=== PATIENT | male | born 1995 | race Caucasian/White ===

== ENCOUNTER 2017-07-14 14:51 | Inpatient (IN) | payer OTHER ==
[~2017-07-14] VITALS: Ht 185.4 cm; Wt 68.3 kg
[~2017-07-14 14:51] MED LIST: LACTATED RINGER'S 1000 ML INJ 1,000 ML IV ONE; ROCURONIUM INJ 50 MG/5 ML SYRINGE IV PUSH ONE; SODIUM CHLORIDE 0.9% 20 ML VIAL IV ONE
[2017-07-14] MEDS ORDERED: IOHEXOL 350 MG/ML 10 ML VIAL (for RAD DIAG) IVCONTRAST ONE (14:52)
[2017-07-14] MEDS ORDERED: ETOMIDATE 20 MG/10 ML VIAL ONE (14:54)
[2017-07-14] MEDS ORDERED: SUCCINYLCHOLINE CHLORIDE 200 MG/10 ML VIAL ONE ×2 (14:54→15:04)
[2017-07-14] MEDS ORDERED: ceFAZolin 2 GM PREMIX 50 ML ONE (15:14)
[2017-07-14] MEDS ORDERED: DIPHTH/TETANUS/ACEL PERTUSSIS (BOOSTER) 0.5 ML VIAL/PFS IM ONE ×2 (15:14→15:55)
[2017-07-14] MEDS ORDERED: MORPHINE SULFATE 4 MG/ML INJ ONE (15:14)
[2017-07-14] MEDS ORDERED: PROPOFOL 1000 MG/100 ML INJ 100 ML ONE (15:17)
[2017-07-14 15:28] LABS: AUTOMATED NEUTROPHIL # 19.3 TH/MM3 (1.8-7.7); BASOPHIL # 0.1 TH/MM3 (0-0.2); BASOPHIL % 0.4 % (0.0-2.0); EOSINOPHIL # 0.3 TH/MM3 (0-0.4); EOSINOPHIL % 1.1 % (0.0-4.0); HEMATOCRIT 46.6 % (39.0-51.0); HEMOGLOBIN 15.4 GM/DL (13.0-17.0); LYMPH % 20.1 % (9.0-44.0); LYMPHOCYTE # 5.3 TH/MM3 (1.0-4.8); MEAN CELL VOLUME 90.5 FL (80.0-100.0); MEAN CORPUSCULAR HGB CONC 33.1 % (32.0-36.0); MEAN PLATELET VOLUME 10.1 FL (7.0-11.0); MONO % 5.5 % (0.0-8.0); MONOCYTE # 1.4 TH/MM3 (0-0.9); NEUT % 72.9 % (16.0-70.0); PLATELET COUNT 359 TH/MM3 (150-450); RED BLOOD COUNT 5.15 MIL/MM3 (4.50-5.90); RED CELL DISTRIBUTION WIDTH 13.3 % (11.6-17.2); WHITE BLOOD COUNT 26.4 TH/MM3 (4.0-11.0)
[2017-07-14 15:37] LABS: INTERNATIONAL NORMALIZED RATIO 1.1 RATIO; PROTHROMBIN TIME - PATIENT 11.5 SEC (9.8-11.6)
[2017-07-14] MEDS ORDERED: VECURONIUM BROMIDE 10 MG VIAL ONE (15:38)
[2017-07-14] MEDS ORDERED: ceFAZolin 2 GM PREMIX 50 ML IV STA (15:55)
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
[2017-07-14] MEDS ORDERED: MORPHINE SULFATE 4 MG/ML INJ IV PUSH ONE (16:00)
[2017-07-14] MEDS ORDERED: ONDANSETRON HCL 4 MG/2 ML VIAL IV PUSH ONE (16:00)
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
[2017-07-14 16:08] VITALS: O2SAT 99
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
[2017-07-14] MEDS: SODIUM CHLOR 0.9% 1000 ML INJ 1,000 ML IV SCH (16:20)
[2017-07-14 16:21] LABS: BANDS 1 % (0-6); BASOPHILS 1 % (0-2); LYMPHOCYTES 25 % (9-44); METAMYELOCYTES 1 % (0-1); MONOCYTES 2 % (0-8); MYELOCYTES 1 % (0-0); NEUTROPHIL # MANUAL DIFF 18.5 TH/MM3 (1.8-7.7); POLYS (SEG NEUTROPHILS) 67 % (16-70)
[2017-07-14] MEDS ORDERED: MAGNESIUM HYDROXIDE SUSP 30 ML CUP PO PRN (16:30)
[2017-07-14] MEDS ORDERED: MISCELLANEOUS NURSING INFORMATION XX SCH (16:30)
[2017-07-14] MEDS ORDERED: SODIUM CHLORIDE 0.9% FLUSH 10 ML FLUSH IV FLUSH PRN (16:30)
[2017-07-14] MEDS ORDERED: ONDANSETRON HCL 4 MG/2 ML VIAL IV PUSH PRN (16:30)
[2017-07-14] MEDS ORDERED: CHLORHEXIDINE GLUCONATE 2 % 1 PACK (2 CLOTHS) TOP PRN (16:30)
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
[2017-07-14] MEDS ORDERED: PROPOFOL 500 MG/50 ML INJ 50 ML ONE ×2 (17:27→19:00)
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
[2017-07-14] MEDS ORDERED: fentaNYL DRIP 250 ML IV PRN ×2 (17:45→20:00)
[2017-07-14] MEDS ORDERED: PROPOFOL 1000 MG/100 ML INJ 100 ML IV PRN ×2 (17:45→20:00)
[2017-07-14] MEDS ORDERED: RESP: ALBUTEROL 2.5 MG/IPRATROPIUM 0.5 MG NEB (PRN) NEB (18:00)
[2017-07-14] MEDS ORDERED: 3% SALINE INJ 500 ML IV ONE (18:00)
[2017-07-14 18:05] VITALS: O2SAT 100
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
[2017-07-14] MEDS ORDERED: levETIRAcetam INJ 100 ML IV ONE (18:44)
[2017-07-14] MEDS ORDERED: SODIUM PHOSPHATE INJ 30 MMOL in SODIUM CHLOR 0.9% 250 ML INJ 240 ML IV PRN (19:00)
[2017-07-14] MEDS ORDERED: POTASSIUM CHLORIDE 25 MEQ EFFERVESCENT TAB PO PRN (19:00)
[2017-07-14] MEDS ORDERED: POTASSIUM CHLOR 20 MEQ PREMIX 100 ML IV PRN ×2 (19:00)
[2017-07-14] MEDS ORDERED: POTASSIUM PHOSPHATE INJ 30 MMOL in SODIUM CHLOR 0.9% 250 ML INJ 250 ML IV PRN (19:00)
[2017-07-14] MEDS ORDERED: MAGNESIUM SULFATE INJ 2 GM in SODIUM CHLORIDE 0.9% INJ 96 ML IV PRN (19:00)
[2017-07-14] MEDS ORDERED: POTASSIUM PHOSPHATE MONOBASIC 500 MG TAB PO PRN (19:00)
[2017-07-14] MEDS ORDERED: POTASSIUM PHOSPHATE MONOBASIC 500 MG TAB PO/TUBE PRN (19:00)
[2017-07-14] MEDS ORDERED: POTASSIUM CHLOR 40 MEQ PREMIX 100 ML IV PRN ×2 (19:00)
[2017-07-14] MEDS ORDERED: MAGNESIUM SULFATE INJ 4 GM in SODIUM CHLORIDE 0.9% INJ 92 ML IV PRN (19:00)
[2017-07-14] MEDS ORDERED: MAGNESIUM OXIDE 400 MG TAB PO PRN (19:00)
[2017-07-14] MEDS ORDERED: DO NOT ADM ANY ANTICOAGULANT DRUGS PRN (19:15)
[2017-07-14 20:00] VITALS: BP 152/78; PULSE 82; RESP 22; TEMP 98.7; O2SAT 100
[2017-07-14] MEDS: DOCUSATE SODIUM 100 MG CAP PO SCH (20:15)
--- NOTE | 2017-07-14 20:28 | RADRPT ---
EXAM DATE/TIME: 07/14/2017 19:39 [facility] COMPARISON: CHEST SINGLE AP, July 14, 2017, 14:52. INDICATIONS : Post chest tube placement. MEDICAL HISTORY : None. SURGICAL HISTORY : None. ENCOUNTER: Initial ACUITY: 1 day PAIN SCORE: Non-responsive. LOCATION: Right chest FINDINGS: A right-sided chest tube has been placed. There is a tiny persistent right apical pneumothorax measur ing 18 mm. And the endotracheal tube has its tip 2 cm above the elian. The nasogastric tube has its tip coiled in the stomach. The heart is normal. The pulmonary vascular pattern is normal. The lungs a re clear. CONCLUSION: Right-sided chest tube appears to be in good position. Tiny residual right apical pneumothorax measur ing 18 mm is noted. Torin Osuna MD on July 14, 2017 at 20:24 Board Certified Radiologist. This report was verified electronically.
[2017-07-14] MEDS: CHLORHEXIDINE 0.12% (ORAL KIT) 15 ML CUP MT SCH (20:29)
[2017-07-14] MEDS: SODIUM CHLORIDE 23.4% INJ 188 MEQ in SODIUM CHLOR 0.9% 1000 ML INJ 1,000 ML IV SCH (20:29)
[2017-07-14] MEDS: PROPOFOL 1000 MG/100 ML INJ 100 ML IV PRN (20:31)
[2017-07-14] MEDS: fentaNYL DRIP 250 ML IV PRN (20:32)
[2017-07-14 21:18] VITALS: O2SAT 100
[2017-07-14 22:00] VITALS: PULSE 86
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
[2017-07-14 22:39] LABS: MAGNESIUM 1.8 MG/DL (1.5-2.5); PHOSPHORUS 1.7 MG/DL (2.5-4.9)
[2017-07-15] VITALS (16 sets, daily range): BP systolic 93–142; BP diastolic 53–69; PULSE 64–100; RESP 16–20; TEMP 97.9–99.1; O2SAT 34–100
[2017-07-15] MEDS: SODIUM CHLOR 0.9% 1000 ML INJ 1,000 ML IV SCH ×3 (00:11→15:00)
[2017-07-15] MEDS: PROPOFOL 1000 MG/100 ML INJ 100 ML IV PRN ×5 (00:11→20:01)
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
[2017-07-15] MEDS ORDERED: EPINEPHrine HCL (1:10,000) 1 MG/10 ML SYRINGE ONE (03:33)
[2017-07-15] MEDS ORDERED: LIDOCAINE HCL 2% 100 MG/5 ML SYRINGE ONE (03:33)
[2017-07-15] MEDS ORDERED: ATROPINE SULFATE 1 MG/10 ML SYRINGE ONE (03:33)
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
[2017-07-15 04:57] LABS: AUTOMATED NEUTROPHIL # 9.2 TH/MM3 (1.8-7.7); BASOPHIL % 0.2 % (0.0-2.0); EOSINOPHIL # 0.1 TH/MM3 (0-0.4); EOSINOPHIL % 0.9 % (0.0-4.0); HEMATOCRIT 37.9 % (39.0-51.0); HEMOGLOBIN 13.3 GM/DL (13.0-17.0); LYMPH % 8.3 % (9.0-44.0); LYMPHOCYTE # 0.9 TH/MM3 (1.0-4.8); MEAN CELL VOLUME 86.4 FL (80.0-100.0); MEAN CORPUSCULAR HEMOGLOBIN 30.3 PG (27.0-34.0); MEAN CORPUSCULAR HGB CONC 35.1 % (32.0-36.0); MEAN PLATELET VOLUME 9.2 FL (7.0-11.0); MONO % 9.7 % (0.0-8.0); MONOCYTE # 1.1 TH/MM3 (0-0.9); NEUT % 80.9 % (16.0-70.0); PLATELET COUNT 220 TH/MM3 (150-450); RED BLOOD COUNT 4.39 MIL/MM3 (4.50-5.90); RED CELL DISTRIBUTION WIDTH 13.2 % (11.6-17.2); WHITE BLOOD COUNT 11.4 TH/MM3 (4.0-11.0)
[2017-07-15] MEDS: CHLORHEXIDINE GLUCONATE 2 % 1 PACK (2 CLOTHS) TOP SCH (05:02)
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
[2017-07-15] MEDS: levETIRAcetam INJ 500 MG in SODIUM CHLORIDE 0.9% INJ 100 ML IV SCH ×3 (05:27→20:05)
[2017-07-15] MEDS: CHLORHEXIDINE 0.12% (ORAL KIT) 15 ML CUP MT SCH ×2 (08:00→20:05)
[2017-07-15] MEDS: DOCUSATE SODIUM 100 MG CAP PO SCH ×2 (09:00→20:02)
[2017-07-15] MEDS ORDERED: NOREPINEPHRINE-DEXTROSE DRIP 250 ML IV ONE (09:15)
[2017-07-15] MEDS ORDERED: PERC5TAB12 PO (09:50)
[2017-07-15] MEDS ORDERED: NOREPINEPHRINE 4 MG/D5W 250 ML IV PRN (10:30)
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
--- NOTE | 2017-07-15 12:54 | HHI.NSPN ---
Labs, Micro, & Vital Signs Results Date Time Temp Pulse Resp B/P (MAP) Pulse Ox O2 Delivery O2 Flow Rate FiO2 07/15/17 12:12 100 50 07/15/17 10:15 77 116/57 07/15/17 10:00 78 112/55 07/15/17 09:30 76 111/56 07/15/17 09:15 80 106/58 07/15/17 08:57 34 50 07/15/17 08:57 50 07/15/17 08:00 50 07/15/17 08:00 98.4 87 18 100/62 (75) 99 07/15/17 06:00 96 07/15/17 05:49 99 50 07/15/17 04:00 100 07/15/17 04:00 50 07/15/17 04:00 99 100 07/15/17 04:00 99.1 100 20 114/68 (83) 100 07/15/17 02:00 96 07/15/17 00:12 100 50 07/15/17 00:00 93 07/15/17 00:00 99.1 93 20 108/69 (82) 100 07/15/17 00:00 50 07/14/17 22:00 86 07/14/17 21:18 100 50 07/14/17 21:18 100 50 07/14/17 20:00 82 07/14/17 20:00 98.7 82 22 152/78 (102) 100 07/14/17 18:05 100 50 07/14/17 18:05 100 50 07/14/17 16:08 99 100 07/14/17 16:08 99 15.00 100 07/16/17 07:00 Intake Total 105 ml Balance 105 ml Constitutional Vital Signs Date Time Temp Pulse Resp B/P (MAP) Pulse Ox O2 Delivery O2 Flow Rate FiO2 07/15/17 12:12 100 50 07/15/17 10:15 77 116/57 07/15/17 10:00 78 112/55 07/15/17 09:30 76 111/56 07/15/17 09:15 80 106/58 07/15/17 08:57 34 50 07/15/17 08:57 50 07/15/17 08:00 50 07/15/17 08:00 98.4 87 18 100/62 (75) 99 07/15/17 06:00 96 07/15/17 05:49 99 50 07/15/17 04:00 100 07/15/17 04:00 50 07/15/17 04:00 99 100 07/15/17 04:00 99.1 100 20 114/68 (83) 100 07/15/17 02:00 96 07/15/17 00:12 100 50 07/15/17 00:00 93 07/15/17 00:00 99.1 93 20 108/69 (82) 100 07/15/17 00:00 50 07/14/17 22:00 86 07/14/17 21:18 100 50 07/14/17 21:18 100 50 07/14/17 20:00 82 07/14/17 20:00 98.7 82 22 152/78 (102) 100 07/14/17 18:05 100 50 07/14/17 18:05 100 50 07/14/17 16:08 99 100 07/14/17 16:08 99 15.00 100 07/16/17 07:00 Intake Total 105 ml Balance 105 ml Maximo Ramírez MD Jul 15, 2017 12:54
[2017-07-15 13:13] LABS: BICARBONATE 24.9 MEQ/L (21.0-32.0); CALCIUM 8.3 MG/DL (8.5-10.1); CREATININE 0.92 MG/DL (0.60-1.30)
[2017-07-15 13:26] LABS: MAGNESIUM 2.1 MG/DL (1.5-2.5); PHOSPHORUS 2.7 MG/DL (2.5-4.9)
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
--- NOTE | 2017-07-15 15:27 | OTSOAPIP ---
RECEIVED OCCUPATIONAL THERAPY ORDERS FROM MICHAEL AMARO. REVIEWED ELECTRONIC MEDICAL RECORD. ATTEMPTED TO SEE PATIENT ON THE INTENSIVE CARE UNIT, HOWEVER ULISES MARKS REQUESTS TO HOLD EVALUATION THIS DATE. WILL FOLLOW UP AND REATTEMPT NEXT DAY. INTERDISCIPLINARY COMMUNICATION: REVIEWED ELECTRONIC MEDICAL RECORD, SPOKE WITH ULISES MARKS Therapist: Mary Beth Patterson, OTR/L Signature on file
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
[2017-07-15] MEDS: fentaNYL DRIP 250 ML IV PRN (18:35)
[2017-07-15] MEDS: SODIUM CHLORIDE 23.4% INJ 188 MEQ in SODIUM CHLOR 0.9% 1000 ML INJ 1,000 ML IV SCH (19:08)
[2017-07-15] MEDS: FAMOTIDINE 20 MG TAB PO SCH (20:05)
[2017-07-15 22:26] LABS: MAGNESIUM 1.9 MG/DL (1.5-2.5); PHOSPHORUS 2.4 MG/DL (2.5-4.9)
[2017-07-15] MEDS ORDERED: NOREPINEPHRINE 4 MG/4 ML AMP ONE (23:07)
[2017-07-16] VITALS (17 sets, daily range): BP systolic 118–152; BP diastolic 55–74; PULSE 58–111; RESP 16–20; TEMP 98.3–101.1; O2SAT 94–100
[2017-07-16] MEDS: SODIUM CHLOR 0.9% 1000 ML INJ 1,000 ML IV SCH ×4 (03:15→23:57)
[2017-07-16] MEDS: CHLORHEXIDINE GLUCONATE 2 % 1 PACK (2 CLOTHS) TOP SCH (03:16)
[2017-07-16] MEDS: PROPOFOL 1000 MG/100 ML INJ 100 ML IV PRN ×2 (04:07→17:36)
[2017-07-16] MEDS: NOREPINEPHRINE INJ 4 MG in SODIUM CHLOR 0.9% 250 ML INJ 246 ML IV PRN ×2 (04:08→18:57)
[2017-07-16 05:17] LABS: AUTOMATED NEUTROPHIL # 9.2 TH/MM3 (1.8-7.7); BASOPHIL % 0.3 % (0.0-2.0); EOSINOPHIL # 0.2 TH/MM3 (0-0.4); EOSINOPHIL % 1.8 % (0.0-4.0); HEMATOCRIT 31.7 % (39.0-51.0); HEMOGLOBIN 10.9 GM/DL (13.0-17.0); LYMPH % 7.1 % (9.0-44.0); LYMPHOCYTE # 0.8 TH/MM3 (1.0-4.8); MEAN CELL VOLUME 87.6 FL (80.0-100.0); MEAN CORPUSCULAR HEMOGLOBIN 30.2 PG (27.0-34.0); MEAN CORPUSCULAR HGB CONC 34.5 % (32.0-36.0); MEAN PLATELET VOLUME 9.1 FL (7.0-11.0); MONO % 8.4 % (0.0-8.0); MONOCYTE # 0.9 TH/MM3 (0-0.9); NEUT % 82.4 % (16.0-70.0); PLATELET COUNT 173 TH/MM3 (150-450); RED BLOOD COUNT 3.62 MIL/MM3 (4.50-5.90); WHITE BLOOD COUNT 11.2 TH/MM3 (4.0-11.0)
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
[2017-07-16 05:44] LABS: AST (GOT) 80 U/L (15-39); BICARBONATE 24.1 MEQ/L (21.0-32.0); BLOOD UREA NITROGEN 9 MG/DL (7-18); CALCIUM 8.3 MG/DL (8.5-10.1); CHLORIDE 117 MEQ/L (98-107); CREATININE 0.76 MG/DL (0.60-1.30); GLOMERULAR FILTRATION RATE 131 ML/MIN (>89); GLUCOSE,RANDOM 114 MG/DL (74-106); SODIUM (NA) 149 MEQ/L (136-145)
[2017-07-16 05:48] LABS: ALKALINE PHOSPHATASE 48 U/L (45-117); ALT (GPT) 27 U/L (9-52); TOTAL BILIRUBIN ADULT 2.1 MG/DL (0.2-1.0); TOTAL PROTEIN 5.7 GM/DL (6.4-8.2)
[2017-07-16] MEDS: CHLORHEXIDINE 0.12% (ORAL KIT) 15 ML CUP MT SCH ×2 (07:16→20:37)
[2017-07-16] MEDS ORDERED: GENTAMICIN SULFATE 80 MG/2 ML VIAL ONE (07:47)
[2017-07-16] MEDS ORDERED: VANCOMYCIN HCL 1000 MG VIAL ONE (07:47)
[2017-07-16] MEDS ORDERED: BUPIVACAINE/EPINEPHRINE 0.5% PF 30 ML VIAL ONE (08:13)
[2017-07-16] MEDS: levETIRAcetam INJ 500 MG in SODIUM CHLORIDE 0.9% INJ 100 ML IV SCH ×2 (08:46→20:36)
[2017-07-16] MEDS: FAMOTIDINE 20 MG TAB PO SCH ×2 (08:47→20:36)
[2017-07-16] MEDS: MAGNESIUM HYDROXIDE SUSP 30 ML CUP PO SCH ×2 (08:47→20:37)
[2017-07-16] MEDS: DOCUSATE SODIUM 100 MG CAP PO SCH ×3 (08:47→20:37)
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
[2017-07-16] MEDS ORDERED: LIDOCAINE HCL 1% PF 5 ML SYRINGE OTHER ONE (12:00)
[2017-07-16] MEDS ORDERED: DEXAMETHASONE SOD PHOS 4 MG/ML VIAL IV ONE (12:00)
[2017-07-16] MEDS ORDERED: PHENYLEPH/NS 1000 MCG/10 ML SYR IV ONE (12:00)
[2017-07-16] MEDS ORDERED: ONDANSETRON HCL 4 MG/2 ML VIAL IV ONE (12:00)
[2017-07-16] MEDS ORDERED: SUCCINYLCHOLINE CHLORIDE 100 MG/5 ML SYRINGE IV PUSH ONE (12:00)
[2017-07-16] MEDS ORDERED: NS 500 ML (EXCEL BAG) INJ 1,000 ML IV ONE (12:00)
[2017-07-16] MEDS ORDERED: KETOROLAC TROMETHAMINE 30 MG/ML (IVP) VIAL IV PUSH ONE (12:00)
[2017-07-16] MEDS ORDERED: PROPOFOL 200 MG/20 ML AMP IV ONE (12:00)
[2017-07-16] MEDS ORDERED: ROCURONIUM INJ 50 MG/5 ML SYRINGE IV PUSH ONE (12:00)
[2017-07-16] MEDS ORDERED: ceFAZolin 2 GM PREMIX 50 ML ONE (13:54)
[2017-07-16] MEDS ORDERED: PROPOFOL 500 MG/50 ML INJ 50 ML ONE (14:12)
--- NOTE | 2017-07-16 14:30 | OTSOAPIP ---
PATIENT OFF FLOOR. WILL FOLLOW UP TOMORROW. INTERDISCIPLINARY COMMUNICATION: REVIEWED ELECTRONIC MEDICAL RECORD Therapist: Mary Beth Patterson OTR/L Signature on file
--- NOTE | 2017-07-16 15:35 | RADRPT ---
EXAM DATE/TIME: 07/16/2017 15:02 [facility] COMPARISON: No previous studies available for comparison. INDICATIONS : Right forearm fracture. ORIF. MEDICAL HISTORY : None. SURGICAL HISTORY : None. ENCOUNTER: Initial ACUITY: 1 day PAIN SCORE: Non-responsive. LOCATION: Right forearm. FINDINGS: 2 spot intraoperative fluoroscopic views of the forearm demonstrate plate and screw fixation across t he right mid radius. Excellent alignment. CONCLUSION: Postoperative changes. Negrito Lorenzo MD on July 16, 2017 at 15:32 Board Certified Radiologist. This report was verified electronically.
[2017-07-16] MEDS ORDERED: PROMETHAZINE INJ 25 MG/ML VIAL IM PRN (15:45)
[2017-07-16] MEDS ORDERED: ONDANSETRON HCL 4 MG/2 ML VIAL IV PUSH PRN (15:45)
[2017-07-16] MEDS ORDERED: SODIUM CHLORIDE 0.9% FLUSH 10 ML FLUSH IV FLUSH PRN (15:45)
[2017-07-16] MEDS ORDERED: oxyCODONE/ACETAMINOPHEN 5 MG/325 MG TAB PO PRN ×2 (15:45)
--- NOTE | 2017-07-16 15:45 | PD.OP ---
cc: Shlomo Sparks Jr., MD Operative Report Date of Surgery: Jul 16, 2017 Preoperative Diagnosis: Right radial shaft fracture Left knee traumatic arthrotomy Postoperative Diagnosis: Same Procedure: #1 open reduction internal fixation right radius #2 left knee arthrotomy irrigation and debridement and wound closure. Anesthesia: Gen. Surgeon: Shlomo Sparks Nailer Machine(s): MICHAEL Boone The surgical procedure was assisted by my Advanced Registered Nurse Practitioner. My MIX CRUSHER OPERATOR presence was necessary throughout this case for the manipulation and positioning of the surgical extremity. My MIX CRUSHER OPERATOR was assisting me throughout the duration of this procedure. The skill set of an Advance Registered Nurse Practitioner was medically necessary to complete this procedure. During the surgical case, the rn surgical was working at the back table and the Advance Registered Nurse Practitioner was directly assisting me. Resident Surgeon: None Operation and Findings: Patient was seen and evaluated preoperatively and found to have a radial shaft fracture as well as left knee traumatic arthrotomy. Informed consent was obtained after detailed discussion of risk and benefits including bleeding, infection, injury to arteries, nerves, and blood vessels, weakness and numbness of hand, and tendon rupture. Informed consent was obtained. Patient received IV antibiotics prior to incision. Timeout procedure was performed. Operative extremity were prepped with alcohol followed by Hibiclens and draped usual sterile fashion. A standard volar approach to the volar forearm was utilized. The fracture site was now visualized. Traction was applied. The articular surface was reduced. Fracture fragments were manipulated to achieve excellent reduction. Fluoroscopy confirmed appropriate alignment of fracture. Fracture was fixed with 2.7mm lag screw for compression then neutralized with a Synthes 7-hole plate. Screws were predrilled and measured for appropriate length. Final fluoroscopy revealed excellent of fracture with well-placed hardware. The wound was thoroughly irrigated with sterile saline. Subcutaneous tissue was closed with 3-0 Vicryl and skin was closed with 3-0 nylon. Sterile dressings were applied with Xeroform, 4 x 4, soft roll, and a well padded volar splint. Compartments were soft and compressible after procedure. Attention now turned to the left knee. There is a large laceration overlying the knee and the entire patella with exposed bone and soft tissue. There is a traumatic arthrotomy wound in the superior pole of the patella with Significant soft tissue contamination. The arthrotomy was extended to allow thorough irrigation and debridement with 6 L of normal saline. The wound was closed with #1 PDS in the capsule, 3-0 PDS in the subcutaneous tissue and 2-0 nylon. Patient was awakened and transferred to recovery room in stable condition IMPLANTS USED Synthes POSTP-OP PLAN OF ACTIVITY Antibiotics: Ancef 48hrs Antiocoagulation: Lovenox Weight bearing status: NWB RUE, WBAT LLE Dressing: Change daily, by RN starting postop day 2 Future procedure planned: none Dispo: when medically stable Shlomo Sparks Jr., MD Jul 16, 2017 15:45
[2017-07-16] MEDS: fentaNYL DRIP 250 ML IV PRN (17:36)
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
[2017-07-16 19:29] LABS: PHOSPHORUS 2.4 MG/DL (2.5-4.9)
[2017-07-16] MEDS ORDERED: SODIUM CHLOR 0.9% 1000 ML INJ 1,000 ML IV ONE (20:30)
[2017-07-16] MEDS: SODIUM CHLORIDE 23.4% INJ 188 MEQ in SODIUM CHLOR 0.9% 1000 ML INJ 1,000 ML IV SCH (20:32)
[2017-07-16] MEDS: CIPROFLOXACIN/HYDROCORTISONE OTIC 10 ML BTL RIGHT EAR SCH (20:36)
[2017-07-16] MEDS: SODIUM CHLORIDE 0.9% FLUSH 10 ML FLUSH IV FLUSH SCH (20:37)
[2017-07-17] VITALS (19 sets, daily range): BP systolic 114–134; BP diastolic 52–68; PULSE 65–106; RESP 18; TEMP 98.1–99.1; O2SAT 98–100
[2017-07-17 00:58] LABS: MAGNESIUM 2.1 MG/DL (1.5-2.5); PHOSPHORUS 2.4 MG/DL (2.5-4.9)
[2017-07-17] MEDS: PROPOFOL 1000 MG/100 ML INJ 100 ML IV PRN (03:00)
[2017-07-17] MEDS: CHLORHEXIDINE GLUCONATE 2 % 1 PACK (2 CLOTHS) TOP SCH (04:00)
[2017-07-17 05:29] LABS: AUTOMATED NEUTROPHIL # 8.1 TH/MM3 (1.8-7.7); BASOPHIL % 0.2 % (0.0-2.0); EOSINOPHIL % 0.2 % (0.0-4.0); HEMATOCRIT 28.7 % (39.0-51.0); LYMPH % 6.6 % (9.0-44.0); LYMPHOCYTE # 0.6 TH/MM3 (1.0-4.8); MEAN CELL VOLUME 87.3 FL (80.0-100.0); MEAN CORPUSCULAR HEMOGLOBIN 30.3 PG (27.0-34.0); MEAN CORPUSCULAR HGB CONC 34.7 % (32.0-36.0); MEAN PLATELET VOLUME 8.9 FL (7.0-11.0); MONO % 6.5 % (0.0-8.0); MONOCYTE # 0.6 TH/MM3 (0-0.9); NEUT % 86.5 % (16.0-70.0); PLATELET COUNT 163 TH/MM3 (150-450); RED BLOOD COUNT 3.28 MIL/MM3 (4.50-5.90); RED CELL DISTRIBUTION WIDTH 13.1 % (11.6-17.2); WHITE BLOOD COUNT 9.4 TH/MM3 (4.0-11.0)
[2017-07-17 05:41] LABS: ALBUMIN 2.6 GM/DL (3.4-5.0); AST (GOT) 155 U/L (15-39); BICARBONATE 24.8 MEQ/L (21.0-32.0); BLOOD UREA NITROGEN 9 MG/DL (7-18); CALCIUM 7.9 MG/DL (8.5-10.1); CHLORIDE 118 MEQ/L (98-107); CREATININE 0.68 MG/DL (0.60-1.30); GLOMERULAR FILTRATION RATE 149 ML/MIN (>89); GLUCOSE,RANDOM 140 MG/DL (74-106); SODIUM (NA) 149 MEQ/L (136-145)
[2017-07-17 05:44] LABS: ALKALINE PHOSPHATASE 42 U/L (45-117); ALT (GPT) 40 U/L (9-52); TOTAL BILIRUBIN ADULT 1.3 MG/DL (0.2-1.0); TOTAL PROTEIN 5.6 GM/DL (6.4-8.2)
--- NOTE | 2017-07-17 06:17 | RADRPT ---
EXAM DATE/TIME: 07/17/2017 05:08 [place] COMPARISON: CHEST SINGLE AP, July 16, 2017, 4:14. INDICATIONS : Short of breath. MEDICAL HISTORY : None. SURGICAL HISTORY : None. ENCOUNTER: Subsequent ACUITY: 3 days PAIN SCORE: 0/10 LOCATION: Left chest FINDINGS: Portable AP view of the chest demonstrates a normal-sized cardiac silhouette. Endotracheal tube and n asogastric tube remain present. Right chest tube is in place and no definite pneumothorax is identifi ed. There is mild atelectasis at the lung bases. CONCLUSION: Right chest tube remains present and no pneumothorax is identified. There is mild atelectasis at the lung bases. Raphael Mendez MD on July 17, 2017 at 6:14 Board Certified Radiologist. This report was verified electronically.
[2017-07-17] MEDS: CHLORHEXIDINE 0.12% (ORAL KIT) 15 ML CUP MT SCH ×2 (08:00→19:37)
[2017-07-17] MEDS: SODIUM CHLOR 0.9% 1000 ML INJ 1,000 ML IV SCH ×2 (08:20→16:20)
[2017-07-17] MEDS: SODIUM CHLORIDE 0.9% FLUSH 10 ML FLUSH IV FLUSH SCH ×2 (08:30→19:37)
[2017-07-17] MEDS: levETIRAcetam INJ 500 MG in SODIUM CHLORIDE 0.9% INJ 100 ML IV SCH ×2 (08:30→19:37)
[2017-07-17] MEDS: MAGNESIUM HYDROXIDE SUSP 30 ML CUP PO SCH ×2 (08:31→19:36)
[2017-07-17] MEDS: FAMOTIDINE 20 MG TAB PO SCH ×2 (08:31→19:37)
[2017-07-17] MEDS: DOCUSATE SODIUM 100 MG CAP PO SCH ×4 (08:31→19:37)
[2017-07-17] MEDS: CIPROFLOXACIN/HYDROCORTISONE OTIC 10 ML BTL RIGHT EAR SCH ×2 (08:31→19:38)
[2017-07-17] MEDS: fentaNYL DRIP 250 ML IV PRN (08:32)
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
[2017-07-17 12:12] LABS: MAGNESIUM 2.4 MG/DL (1.5-2.5); PHOSPHORUS 1.6 MG/DL (2.5-4.9)
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
[2017-07-17] MEDS: SODIUM CHLORIDE 23.4% INJ 188 MEQ in SODIUM CHLOR 0.9% 1000 ML INJ 1,000 ML IV SCH (18:28)
--- NOTE | 2017-07-17 22:11 | PD.ORT.PN ---
Subjective Subjective Remarks Intubated Objective Vitals Vital Signs Date Time Temp Pulse Resp B/P (MAP) Pulse Ox O2 Delivery O2 Flow Rate FiO2 07/17/17 20:00 45 07/17/17 20:00 83 07/17/17 20:00 99.1 83 18 130/65 (86) 100 07/17/17 18:00 77 07/17/17 16:00 84 07/17/17 16:00 45 07/17/17 16:00 98.3 84 18 122/60 (80) 100 07/17/17 15:57 99 45 07/17/17 14:00 75 07/17/17 12:00 81 07/17/17 12:00 45 07/17/17 12:00 98.1 81 18 130/68 (88) 100 07/17/17 11:44 100 45 07/17/17 10:30 78 152/74 07/17/17 10:00 78 07/17/17 08:46 99 45 07/17/17 08:00 45 07/17/17 08:00 98.6 66 18 124/52 (76) 100 07/17/17 08:00 65 07/17/17 06:00 67 07/17/17 04:38 100 45 07/17/17 04:00 60 07/17/17 04:00 65 07/17/17 04:00 98.4 65 18 114/56 (75) 100 07/17/17 02:00 69 07/17/17 00:23 100 50 07/17/17 00:22 100 50 07/17/17 00:00 60 07/17/17 00:00 99.1 73 18 134/64 (87) 100 07/17/17 00:00 106 I/O 07/16/17 07/16/17 07/16/17 07/17/17 07/17/17 07/17/17 07:00 15:00 23:00 07:00 15:00 23:00 Intake Total 1455 ml 105 ml 3321 ml 1278 ml 455 ml 1790 ml Output Total 889 ml 1760 ml 796 ml 930 ml Balance 566 ml 105 ml 1561 ml 482 ml 455 ml 860 ml Intake IV Total 1455 ml 105 ml 3321 ml 1200 ml 455 ml 1100 ml Tube Feeding 78 ml 590 ml Other 100 ml Output Urine Total 750 ml 650 ml 750 ml 850 ml Gastric Drainage Total 125 ml 0 ml Chest Tube Drainage Total 14 ml 10 ml 46 ml 80 ml Estimated Blood Loss 100 ml Other 1000 ml # Bowel Movements 0 0 0 0 Result Diagram: 07/17/17 0520 07/17/17 1700 Imaging Last 24 hours Impressions Chest X-Ray 07/17/17 0600 Signed Impressions: Service Date/Time: Monday, July 17, 2017 05:08 - CONCLUSION: Right chest tube remains present and no pneumothorax is identified. There is mild atelectasis at the lung bases. Raphael Mendez MD Objective Remarks intubated right upper extremity -splint in place good cap refill left knee- CKS. dressing CDI Assessment & Plan Assessment and Plan POD1- ORIF right radius left knee I&D intubated Antibiotics: Ancef 48hrs Antiocoagulation: Lovenox Weight bearing status: NWB RUE, WBAT LLE Dressing: Change daily, by RN starting postop day 2 Dispo: when medically stable Shlomo Sparks Jr., MD Jul 17, 2017 22:11
[2017-07-18] VITALS (17 sets, daily range): BP systolic 113–144; BP diastolic 51–68; PULSE 57–84; RESP 18–20; TEMP 98.7–100.7; O2SAT 95–100
[2017-07-18 01:02] LABS: MAGNESIUM 2.4 MG/DL (1.5-2.5); PHOSPHORUS 2.2 MG/DL (2.5-4.9)
[2017-07-18] MEDS: PROPOFOL 1000 MG/100 ML INJ 100 ML IV PRN ×2 (04:00→17:38)
[2017-07-18] MEDS: CHLORHEXIDINE GLUCONATE 2 % 1 PACK (2 CLOTHS) TOP SCH (04:00)
[2017-07-18] MEDS: SODIUM CHLOR 0.9% 1000 ML INJ 1,000 ML IV SCH ×2 (04:57→21:37)
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
[2017-07-18 06:09] LABS: AUTOMATED NEUTROPHIL # 6.9 TH/MM3 (1.8-7.7); BASOPHIL % 0.5 % (0.0-2.0); EOSINOPHIL # 0.1 TH/MM3 (0-0.4); EOSINOPHIL % 1.6 % (0.0-4.0); HEMATOCRIT 25.8 % (39.0-51.0); LYMPH % 8.3 % (9.0-44.0); LYMPHOCYTE # 0.7 TH/MM3 (1.0-4.8); MEAN CELL VOLUME 87.2 FL (80.0-100.0); MEAN CORPUSCULAR HEMOGLOBIN 30.2 PG (27.0-34.0); MEAN CORPUSCULAR HGB CONC 34.7 % (32.0-36.0); MEAN PLATELET VOLUME 9.6 FL (7.0-11.0); MONO % 7.1 % (0.0-8.0); MONOCYTE # 0.6 TH/MM3 (0-0.9); NEUT % 82.5 % (16.0-70.0); PLATELET COUNT 186 TH/MM3 (150-450); RED BLOOD COUNT 2.96 MIL/MM3 (4.50-5.90); RED CELL DISTRIBUTION WIDTH 12.9 % (11.6-17.2); WHITE BLOOD COUNT 8.4 TH/MM3 (4.0-11.0)
[2017-07-18 06:37] LABS: ALBUMIN 2.4 GM/DL (3.4-5.0); ALKALINE PHOSPHATASE 48 U/L (45-117); ALT (GPT) 69 U/L (9-52); AST (GOT) 364 U/L (15-39); BICARBONATE 26.6 MEQ/L (21.0-32.0); BLOOD UREA NITROGEN 11 MG/DL (7-18); CALCIUM 7.9 MG/DL (8.5-10.1); CHLORIDE 117 MEQ/L (98-107); GLOMERULAR FILTRATION RATE 172 ML/MIN (>89); GLUCOSE,RANDOM 120 MG/DL (74-106); SODIUM (NA) 150 MEQ/L (136-145); TOTAL BILIRUBIN ADULT 0.9 MG/DL (0.2-1.0); TOTAL PROTEIN 5.5 GM/DL (6.4-8.2)
--- NOTE | 2017-07-18 06:37 | RADRPT ---
EXAM DATE/TIME: 07/18/2017 05:15 [facility] COMPARISON: CT FACIAL BONES W/O CONTRAST, July 14, 2017, 15:41. CT BRAIN W/O CONTRAST, July 16, 2017, 9:59. INDICATIONS : Follow up hemorrhage. RADIATION DOSE: 56.34 CTDIvol (mGy) MEDICAL HISTORY : None SURGICAL HISTORY : None. ENCOUNTER: Subsequent ACUITY: 2 days PAIN SCALE: Non-responsive LOCATION: cranial TECHNIQUE: Multiple contiguous axial images were obtained of the head. Using automated exposure control and adj ustment of the mA and/or kV according to patient size, radiation dose was kept as low as reasonably a chievable to obtain optimal diagnostic quality images. DICOM format image data is available electro nically for review and comparison. FINDINGS: There is a hemorrhagic contusion in the right basal ganglia and right temporal lobe. The acute blood products are stable measuring approximately 2.8 x 1.8 cm and there is surrounding vasogenic edema. At the high convexities bilaterally there are punctate areas of acute blood products and vasogenic jodi a similar to the prior study. The largest area measures 14 mm. There are questionable additional smal ler areas in the posterior parietal regions bilaterally. There is approximately 3 mm of right to left midline shift, stable from the prior study. Ventricles are normal in size. There is no downward ashish iation. Posterior fossa demonstrates no acute finding. No extra-axial fluid collections are seen. The re is a right frontal ICP monitor in place. There may be acute blood products along the tentorium cer ebelli. The right mandibular condyle fracture is again identified. CONCLUSION: 1. The multiple hemorrhagic contusions in the bilateral high convexities and in the right temporal lo be are stable. 2. There is stable 3 mm of right to left midline shift. 3. Right mandibular condyle fracture is again visualized. Raphael Mendez MD on July 18, 2017 at 6:29 Board Certified Radiologist. This report was verified electronically.
[2017-07-18] MEDS: fentaNYL DRIP 250 ML IV PRN (06:53)
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
[2017-07-18] MEDS: DOCUSATE SODIUM 100 MG CAP PO SCH ×3 (09:00→20:37)
[2017-07-18] MEDS: SODIUM CHLORIDE 0.9% FLUSH 10 ML FLUSH IV FLUSH SCH ×2 (09:00→20:37)
[2017-07-18] MEDS: levETIRAcetam INJ 500 MG in SODIUM CHLORIDE 0.9% INJ 100 ML IV SCH ×2 (09:10→20:36)
[2017-07-18] MEDS: FAMOTIDINE 20 MG TAB PO SCH ×2 (09:16→20:37)
[2017-07-18] MEDS: MAGNESIUM HYDROXIDE SUSP 30 ML CUP PO SCH ×2 (09:16→20:37)
[2017-07-18] MEDS: CIPROFLOXACIN/HYDROCORTISONE OTIC 10 ML BTL RIGHT EAR SCH ×2 (09:17→20:37)
[2017-07-18] MEDS: CHLORHEXIDINE 0.12% (ORAL KIT) 15 ML CUP MT SCH ×2 (09:17→20:36)
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
[2017-07-18] MEDS: MORPHINE SULFATE 8 MG/ML INJ IV PUSH PRN (15:19)
--- NOTE | 2017-07-18 16:51 | PD.ORT.PN ---
Subjective Subjective Remarks Intubated Objective Vitals Vital Signs Date Time Temp Pulse Resp B/P (MAP) Pulse Ox O2 Delivery O2 Flow Rate FiO2 07/18/17 16:00 35 07/18/17 16:00 98.8 68 18 116/56 (76) 96 07/18/17 16:00 68 07/18/17 15:41 100 45 07/18/17 14:00 58 07/18/17 12:00 45 07/18/17 12:00 98.8 70 18 122/68 (86) 100 07/18/17 12:00 70 07/18/17 11:46 35 07/18/17 10:00 64 07/18/17 08:27 99 35 07/18/17 08:00 59 07/18/17 08:00 45 07/18/17 08:00 98.7 59 18 120/62 (81) 98 07/18/17 06:00 61 07/18/17 05:05 100 100 07/18/17 04:00 75 07/18/17 04:00 99.1 75 20 113/51 (71) 100 07/18/17 04:00 45 07/18/17 02:00 84 07/18/17 01:44 99 45 07/18/17 00:00 80 07/18/17 00:00 45 07/18/17 00:00 99.2 80 18 128/66 (86) 100 07/17/17 22:00 74 07/17/17 20:54 98 45 07/17/17 20:54 98 45 07/17/17 20:00 45 07/17/17 20:00 83 07/17/17 20:00 99.1 83 18 130/65 (86) 100 07/17/17 18:00 77 I/O 07/17/17 07/17/17 07/17/17 07/18/17 07/18/17 07/18/17 07:00 15:00 23:00 07:00 15:00 23:00 Intake Total 1278 ml 455 ml 1890 ml 2360 ml Output Total 796 ml 930 ml 840 ml Balance 482 ml 455 ml 960 ml 1520 ml Intake IV Total 1200 ml 455 ml 1200 ml 1800 ml Tube Feeding 78 ml 590 ml 460 ml Other 100 ml 100 ml Output Urine Total 750 ml 850 ml 800 ml Chest Tube Drainage Total 46 ml 80 ml 40 ml # Bowel Movements 0 0 Result Diagram: 07/18/17 0545 07/18/17 0545 Imaging Last 24 hours Impressions Chest X-Ray 07/17/17 0600 Signed Impressions: Service Date/Time: Monday, July 17, 2017 05:08 - CONCLUSION: Right chest tube remains present and no pneumothorax is identified. There is mild atelectasis at the lung bases. Raphael Mendez MD Objective Remarks intubated right upper extremity -splint in place good cap refill left knee- CKS. dressing CDI Assessment & Plan Assessment and Plan POD2- ORIF right radius left knee I&D intubated Antibiotics: Ancef 48hrs Antiocoagulation: Lovenox Weight bearing status: NWB RUE, WBAT LLE Dressing: Change daily, by RN starting postop day 2 on left knee ok to dc CKS in 1 week Dispo: when medically stable Shlomo Sparks Jr., MD Jul 18, 2017 16:51
--- NOTE | 2017-07-18 19:30 | HHI.PR ---
Immediate Post Op Note Procedure Date: Jul 18, 2017 Pre Op Diagnosis: nasal lacerations x 2 1.5 cm degloving injury involving the nasal septum left facial laceration 2.5cm nasal bone fracture Post Op Diagnosis: lisa Surgeon: Ok Lazcano Dry Pan Operator(s): michelle mejia Procedure: closure of the nasal degloving injury with stabilization of the nasal septum closed reduction of the nasal bone fractures closure of the left facial laceration closure of the nasal lacerations Complications: none Specimen(s) removed: none Estimated blood loss: minimal Anesthesia: General, Local (2%lidocaine with 1:200,000 epi 5cc) Drains: None Patient to: ISC Patient Condition: Fair Date/Time of Procedure: SEE SURGICAL CARE RECORD Ok Lazcano DMD Jul 18, 2017 19:30
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
[2017-07-18] MEDS: LACTULOSE SYRUP 20 GM/30 ML CUP PO SCH (20:40)
[2017-07-19] VITALS (22 sets, daily range): BP systolic 104–149; BP diastolic 56–75; PULSE 54–106; RESP 12–18; TEMP 98.9–101; O2SAT 92–100
[2017-07-19] MEDS: CHLORHEXIDINE GLUCONATE 2 % 1 PACK (2 CLOTHS) TOP SCH (01:10)
[2017-07-19] MEDS: fentaNYL DRIP 250 ML IV PRN (01:15)
[2017-07-19 04:27] LABS: AUTOMATED NEUTROPHIL # 7.7 TH/MM3 (1.8-7.7); BASOPHIL % 0.4 % (0.0-2.0); EOSINOPHIL # 0.1 TH/MM3 (0-0.4); EOSINOPHIL % 0.6 % (0.0-4.0); HEMATOCRIT 26.9 % (39.0-51.0); HEMOGLOBIN 9.4 GM/DL (13.0-17.0); LYMPH % 8.8 % (9.0-44.0); LYMPHOCYTE # 0.8 TH/MM3 (1.0-4.8); MEAN CELL VOLUME 86.5 FL (80.0-100.0); MEAN CORPUSCULAR HEMOGLOBIN 30.1 PG (27.0-34.0); MEAN CORPUSCULAR HGB CONC 34.8 % (32.0-36.0); MEAN PLATELET VOLUME 9.2 FL (7.0-11.0); MONO % 5.8 % (0.0-8.0); MONOCYTE # 0.5 TH/MM3 (0-0.9); NEUT % 84.4 % (16.0-70.0); PLATELET COUNT 212 TH/MM3 (150-450); RED CELL DISTRIBUTION WIDTH 13.4 % (11.6-17.2); WHITE BLOOD COUNT 9.1 TH/MM3 (4.0-11.0)
[2017-07-19 04:55] LABS: BICARBONATE 25.2 MEQ/L (21.0-32.0); CALCIUM 8.1 MG/DL (8.5-10.1); CREATININE 0.57 MG/DL (0.60-1.30); MAGNESIUM 2.2 MG/DL (1.5-2.5)
[2017-07-19 04:56] LABS: PHOSPHORUS 2.7 MG/DL (2.5-4.9)
--- NOTE | 2017-07-19 05:37 | RADRPT ---
EXAM DATE/TIME: 07/19/2017 05:04 [facility] COMPARISON: CHEST SINGLE AP, July 18, 2017, 4:15. INDICATIONS : Shortness of breath. MEDICAL HISTORY : None. SURGICAL HISTORY : None. ENCOUNTER: Subsequent ACUITY: 4 - 6 days PAIN SCORE: Non-responsive. LOCATION: Bilateral chest FINDINGS: Portable AP view of the chest demonstrates a normal-sized cardiac silhouette. ETT and nasogastric tub e remain present. Right chest tube is in place and no pneumothorax is seen. There is mild airspace op acity at the lung bases. CONCLUSION: 1. Stable chest x-ray. Right chest tube is present and no pneumothorax is seen. 2. Mild bibasilar air space opacities representing either atelectasis or airspace consolidation. Raphael Mendez MD on July 19, 2017 at 5:34 Board Certified Radiologist. This report was verified electronically.
[2017-07-19] MEDS: CHLORHEXIDINE 0.12% (ORAL KIT) 15 ML CUP MT SCH ×2 (08:00→20:26)
[2017-07-19] MEDS: FAMOTIDINE 20 MG TAB PO SCH ×2 (08:26→20:26)
[2017-07-19] MEDS: PROPOFOL 1000 MG/100 ML INJ 100 ML IV PRN (08:26)
[2017-07-19] MEDS: MORPHINE SULFATE 8 MG/ML INJ IV PUSH PRN (08:35)
[2017-07-19] MEDS: levETIRAcetam INJ 500 MG in SODIUM CHLORIDE 0.9% INJ 100 ML IV SCH ×2 (08:35→20:27)
[2017-07-19] MEDS: CIPROFLOXACIN/HYDROCORTISONE OTIC 10 ML BTL RIGHT EAR SCH ×2 (09:00→20:27)
[2017-07-19] MEDS: DOCUSATE SODIUM 100 MG CAP PO SCH ×2 (09:00→20:22)
[2017-07-19] MEDS: LACTULOSE SYRUP 20 GM/30 ML CUP PO SCH (09:00)
[2017-07-19] MEDS: MAGNESIUM HYDROXIDE SUSP 30 ML CUP PO SCH ×2 (09:00→20:22)
[2017-07-19] MEDS: SODIUM CHLORIDE 0.9% FLUSH 10 ML FLUSH IV FLUSH SCH ×2 (09:18→20:27)
[2017-07-19] MEDS: SODIUM CHLOR 0.9% 1000 ML INJ 1,000 ML IV SCH (09:19)
[2017-07-19] MEDS ORDERED: QUEtiapine FUMARATE 25 MG TAB PO SCH (10:15)
[2017-07-19] MEDS ORDERED: DEXMEDETOMIDINE INJ 200 MCG in SODIUM CHLORIDE 0.9% INJ 50 ML IV PRN (10:15)
[2017-07-19] MEDS: VALPROIC ACID SYRUP 250 MG/5 ML UDC PO SCH ×2 (11:40→20:26)
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
[2017-07-19] MEDS ORDERED: hydrALAZINE HCL 20 MG/ML VIAL ONE (13:59)
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
[2017-07-19] MEDS ORDERED: QUEtiapine FUMARATE 25 MG TAB PO ONE (14:30)
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
[2017-07-19] MEDS ORDERED: PROPRANOLOL HCL 40 MG TAB PO SCH (15:00)
[2017-07-19] MEDS: PROPRANOLOL HCL 20 MG TAB PO SCH ×3 (15:16→23:42)
[2017-07-19] MEDS: oxyCODONE HCL ORAL CONC 5 MG/0.25 ML SYRINGE PO SCH ×3 (15:17→23:42)
[2017-07-19] MEDS: DEXMEDETOMIDINE INJ 1,000 MCG in SODIUM CHLOR 0.9% 250 ML INJ 250 ML IV PRN (15:45)
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
[2017-07-19] MEDS: QUEtiapine FUMARATE 25 MG TAB PO SCH (17:13)
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
[2017-07-20] VITALS (19 sets, daily range): BP systolic 108–128; BP diastolic 44–58; PULSE 51–92; RESP 9–20; TEMP 98.6–101.3; O2SAT 93–100
[2017-07-20] MEDS: oxyCODONE HCL ORAL CONC 5 MG/0.25 ML SYRINGE PO SCH ×6 (02:10→23:07)
[2017-07-20] MEDS: QUEtiapine FUMARATE 25 MG TAB PO SCH ×3 (02:11→18:28)
[2017-07-20] MEDS: ACETAMINOPHEN 650 MG/20.3 ML UDC PO PRN (02:11)
[2017-07-20] MEDS: CHLORHEXIDINE GLUCONATE 2 % 1 PACK (2 CLOTHS) TOP SCH (03:25)
[2017-07-20] MEDS ORDERED: TERBUTALINE INJ 1 MG/ML AMP SQ PRN (04:45)
[2017-07-20] MEDS ORDERED: DOPamine 800 MG/500 ML INJ 500 ML IV PRN (04:45)
[2017-07-20] MEDS ORDERED: DOPamine 800 MG/500 ML INJ 500 ML ONE (04:48)
[2017-07-20] MEDS ORDERED: D5W IV PRN (05:00)
[2017-07-20] MEDS ORDERED: DOPAMINE IV PRN (05:00)
[2017-07-20 05:14] LABS: AUTOMATED NEUTROPHIL # 6.1 TH/MM3 (1.8-7.7); BASOPHIL % 0.4 % (0.0-2.0); EOSINOPHIL # 0.1 TH/MM3 (0-0.4); EOSINOPHIL % 1.7 % (0.0-4.0); HEMATOCRIT 24.1 % (39.0-51.0); HEMOGLOBIN 8.5 GM/DL (13.0-17.0); LYMPH % 15.4 % (9.0-44.0); LYMPHOCYTE # 1.3 TH/MM3 (1.0-4.8); MEAN CELL VOLUME 86.2 FL (80.0-100.0); MEAN CORPUSCULAR HEMOGLOBIN 30.5 PG (27.0-34.0); MEAN CORPUSCULAR HGB CONC 35.3 % (32.0-36.0); MEAN PLATELET VOLUME 9.3 FL (7.0-11.0); MONO % 9.9 % (0.0-8.0); MONOCYTE # 0.8 TH/MM3 (0-0.9); NEUT % 72.6 % (16.0-70.0); PLATELET COUNT 232 TH/MM3 (150-450); RED CELL DISTRIBUTION WIDTH 12.8 % (11.6-17.2); WHITE BLOOD COUNT 8.4 TH/MM3 (4.0-11.0)
[2017-07-20 05:44] LABS: BICARBONATE 25.1 MEQ/L (21.0-32.0); CREATININE 0.71 MG/DL (0.60-1.30)
[2017-07-20] MEDS: PROPRANOLOL HCL 20 MG TAB PO SCH (05:45)
[2017-07-20] MEDS: PIPERACIL-TAZO 4.5 GM PREMIX 100 ML IV SCH ×4 (05:53→23:07)
[2017-07-20] MEDS: PROPOFOL 1000 MG/100 ML INJ 100 ML IV PRN ×4 (05:54→22:22)
[2017-07-20] MEDS ORDERED: SODIUM CHLOR 0.9% 1000 ML INJ 1,000 ML IV ONE (06:30)
--- NOTE | 2017-07-20 06:34 | RADRPT ---
EXAM DATE/TIME: 07/20/2017 06:00 [place] COMPARISON: CHEST SINGLE AP, July 19, 2017, 5:04. INDICATIONS : Follow up trauma. Short of breath. MEDICAL HISTORY : None. SURGICAL HISTORY : None. ENCOUNTER: Subsequent ACUITY: 4 - 6 days PAIN SCORE: Non-responsive. LOCATION: Bilateral chest FINDINGS: Portable AP view of the chest demonstrates a normal-sized cardiac silhouette. Nasogastric tube and ET T remain present. Right chest tube is in place and no pneumothorax is seen. There is mild opacity at the lung bases, decreased from the prior study. No pleural effusion or pneumothorax is seen. CONCLUSION: 1. Subtle bibasilar opacity slightly decreased from the prior study and most likely representing atel ectasis. 2. Right chest remains present and no pneumothorax is seen. Raphael Mendez MD on July 20, 2017 at 6:32 Board Certified Radiologist. This report was verified electronically.
[2017-07-20] MEDS: SODIUM CHLOR 0.9% 1000 ML INJ 1,000 ML IV SCH (06:57)
[2017-07-20] MEDS: CHLORHEXIDINE 0.12% (ORAL KIT) 15 ML CUP MT SCH ×2 (08:00→23:03)
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
[2017-07-20] MEDS: DOCUSATE SODIUM 100 MG CAP PO SCH ×2 (08:53→21:00)
[2017-07-20] MEDS: FAMOTIDINE 20 MG TAB PO SCH ×2 (08:53→23:04)
[2017-07-20] MEDS: LACTULOSE SYRUP 20 GM/30 ML CUP PO SCH (08:53)
[2017-07-20] MEDS: MAGNESIUM HYDROXIDE SUSP 30 ML CUP PO SCH ×2 (08:53→21:00)
[2017-07-20] MEDS: levETIRAcetam INJ 500 MG in SODIUM CHLORIDE 0.9% INJ 100 ML IV SCH ×2 (08:53→23:04)
[2017-07-20] MEDS: SODIUM CHLORIDE 0.9% FLUSH 10 ML FLUSH IV FLUSH SCH ×2 (08:53→23:04)
[2017-07-20] MEDS: CIPROFLOXACIN/HYDROCORTISONE OTIC 10 ML BTL RIGHT EAR SCH ×2 (08:53→23:07)
[2017-07-20] MEDS: VALPROIC ACID SYRUP 250 MG/5 ML UDC PO SCH ×2 (08:53→23:04)
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
[2017-07-20] MEDS: guanFACINE HCL 1 MG TAB PO SCH ×2 (10:00→18:00)
--- NOTE | 2017-07-20 12:49 | HHI.NSPN ---
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 2017 12:49 Maximo Ramírez MD Jul 20, 2017 21:09
--- NOTE | 2017-07-20 14:32 | RADRPT ---
EXAM DATE/TIME: 07/20/2017 13:33 [facility] COMPARISON: CT BRAIN W/O CONTRAST, July 18, 2017, 5:15. CT BRAIN W/O CONTRAST, July 15, 2017, 4:09. INDICATIONS : Stroke. Trauma. MEDICAL HISTORY : None. SURGICAL HISTORY : ORIF right arm. ENCOUNTER: Subsequent ACUITY: 4-6 days PAIN SCORE: Nonresponsive. LOCATION: head. TECHNIQUE: Multiplanar, multisequence MRI of the brain was performed without contrast. FINDINGS: The examination is compared with the recent CT scans of the brain. Ventricles remain normal in size. There continues to be an intraparenchymal hemorrhage in the right temporal lobe. There is an intrapar enchymal hemorrhage along the right cerebral vertex. However, small punctate hemorrhages are also see n high along the left cerebral vertex and frontal lobes bilaterally. The SWI images demonstrate exten sive microhemorrhages throughout the posterior fossa predominantly involving both cerebellar hemisphe res. There is extensive microhemorrhages throughout both cerebral hemispheres. This pattern is charac teristic of shear injury to the brain. The diffusion weighted images demonstrate a few punctate areas of increased signal which appear to correspond to the areas of punctate hemorrhage. There is mild mi dline shift to the left by 5 mm. No definite or significant subdural hematomas are demonstrated. Ther e is some subarachnoid hemorrhage overlying the right temporal lobe. Prominent chronic right mastoidi tis. The pituitary gland is grossly unremarkable. CONCLUSION: 1. No significant changes in the intraparenchymal hemorrhage noted in the right temporal lobe and hig h right cerebral vertex when compared to the recent prior CT scans of the brain. 2. However, there is extensive microhemorrhages throughout the cerebellar hemispheres and cerebral he mispheres bilaterally characteristic of shear injury to the brain. 3. There is some restricted diffusion associated with several tiny punctate microhemorrhages seen in the cerebral hemispheres. 4. Mild mass effect and midline shift to left by 5 mm. Bernardo Riddle MD on July 20, 2017 at 14:22 Board Certified Radiologist. This report was verified electronically.
--- NOTE | 2017-07-20 14:35 | RADRPT ---
EXAM DATE/TIME: 07/20/2017 13:33 [facility] COMPARISON: CT CERVICAL SPINE W/O CONTRAST, July 16, 2017, 9:59. INDICATIONS : Trauma. Epidural bleed. MEDICAL HISTORY : None. SURGICAL HISTORY : ORIF right arm. ENCOUNTER: Subsequent ACUITY: 4-6 days PAIN SCORE: Nonresponsive. LOCATION: neck. TECHNIQUE: Multiplanar, multisequence MRI examination of the cervical spine was performed. FINDINGS: VERTEBRAE: Normal vertebral body height. Homogeneous marrow signal. 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 No abnormal bone marrow edema seen in the vertebral bodies. ALIGNMENT: No evidence of subluxation. CORD: Normal configuration and signal. POST FOSSA: The cerebellar tonsils are normal in position. C2-C3: The thecal sac has a normal configuration. There is no evidence of disc herniation or spinal canal s tenosis. The neural foramina are patent bilaterally. C3-C4: The thecal sac has a normal configuration. There is no evidence of disc herniation or spinal canal s tenosis. The neural foramina are patent bilaterally. C4-C5: The thecal sac has a normal configuration. There is no evidence of disc herniation or spinal canal s tenosis. The neural foramina are patent bilaterally. C5-C6: The thecal sac has a normal configuration. There is no evidence of disc herniation or spinal canal s tenosis. The neural foramina are patent bilaterally. C6-C7: The thecal sac has a normal configuration. There is no evidence of disc herniation or spinal canal s tenosis. The neural foramina are patent bilaterally. C7-T1: The thecal sac has a normal configuration. There is no evidence of disc herniation or spinal canal s tenosis. The neural foramina are patent bilaterally. CONCLUSION: 1. 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 2. No abnormal bone marrow edema seen in the vertebral bodies. 3. There appears to be normal signal within the spinal cord. 4. No definite acute pathology is demonstrated. Bernardo Riddle MD on July 20, 2017 at 14:30 Board Certified Radiologist. This report was verified electronically.
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
--- NOTE | 2017-07-20 17:45 | PD.ORT.PN ---
Subjective Subjective Remarks Intubated Objective Vitals Vital Signs Date Time Temp Pulse Resp B/P (MAP) Pulse Ox O2 Delivery O2 Flow Rate FiO2 07/20/17 15:56 95 40 07/20/17 13:42 99 50 07/20/17 12:13 99 40 07/20/17 12:12 40 07/20/17 10:00 66 07/20/17 09:52 19 07/20/17 08:00 51 07/20/17 08:00 98.8 56 9 124/52 (76) 98 07/20/17 08:00 45 07/20/17 07:26 98 40 07/20/17 06:00 54 07/20/17 04:05 99 45 07/20/17 04:00 54 07/20/17 04:00 50 07/20/17 04:00 99.6 54 12 108/57 (74) 99 07/20/17 02:00 58 07/20/17 00:31 99 45 07/20/17 00:00 101.2 64 12 116/58 (77) 98 07/20/17 00:00 64 07/20/17 00:00 50 07/19/17 22:00 60 07/19/17 20:00 100.0 58 12 118/60 (79) 99 07/19/17 20:00 58 07/19/17 20:00 50 07/19/17 18:00 106 I/O 07/19/17 07/19/17 07/19/17 07/20/17 07/20/17 07/20/17 07:00 15:00 23:00 07:00 15:00 23:00 Intake Total 730 ml 192 ml 1635 ml 305 ml Output Total 1225 ml 710 ml 500 ml Balance -495 ml -518 ml 1135 ml 305 ml Intake IV Total 1000 ml 305 ml Tube Feeding 550 ml 162 ml 515 ml Other 180 ml 30 ml 120 ml Output Urine Total 1225 ml 600 ml 500 ml Chest Tube Drainage Total 0 ml 110 ml 0 ml # Bowel Movements 0 3 0 Result Diagram: 07/20/1742907/20/17 043 Imaging Last 24 hours Impressions Chest X-Ray 07/17/17 0600 Signed Impressions: Service Date/Time: Monday, July 17, 2017 05:08 - CONCLUSION: Right chest tube remains present and no pneumothorax is identified. There is mild atelectasis at the lung bases. Raphael Mendez MD Objective Remarks intubated right upper extremity -splint in place good cap refill left knee- CKS. dressing CDI Assessment & Plan Assessment and Plan POD4- ORIF right radius left knee I&D intubated Antiocoagulation: Lovenox Weight bearing status: NWB RUE, WBAT LLE Dressing: Change daily, by RN. keep RUE splint in place ok to dc CKS in 1 week Dispo: ortho Shlomo Shelton Jr., MD Jul 20, 2017 17:45
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
[2017-07-21] VITALS (19 sets, daily range): BP systolic 113–136; BP diastolic 44–67; PULSE 54–98; RESP 19–25; TEMP 99.1–100.8; O2SAT 97–100
[2017-07-21] MEDS: PROPOFOL 1000 MG/100 ML INJ 100 ML IV PRN ×5 (01:54→23:16)
[2017-07-21] MEDS: guanFACINE HCL 1 MG TAB PO SCH ×3 (02:00→17:22)
[2017-07-21] MEDS: QUEtiapine FUMARATE 25 MG TAB PO SCH ×2 (02:55→20:42)
[2017-07-21] MEDS: oxyCODONE HCL ORAL CONC 5 MG/0.25 ML SYRINGE PO SCH ×6 (02:55→23:15)
[2017-07-21] MEDS: SODIUM CHLOR 0.9% 1000 ML INJ 1,000 ML IV SCH (03:33)
[2017-07-21] MEDS: CHLORHEXIDINE GLUCONATE 2 % 1 PACK (2 CLOTHS) TOP SCH (03:35)
[2017-07-21 03:48] LABS: AUTOMATED NEUTROPHIL # 6.6 TH/MM3 (1.8-7.7); BASOPHIL % 0.5 % (0.0-2.0); EOSINOPHIL # 0.3 TH/MM3 (0-0.4); EOSINOPHIL % 3.5 % (0.0-4.0); HEMATOCRIT 23.1 % (39.0-51.0); HEMOGLOBIN 8.2 GM/DL (13.0-17.0); LYMPH % 12.1 % (9.0-44.0); LYMPHOCYTE # 1.1 TH/MM3 (1.0-4.8); MEAN CELL VOLUME 86.1 FL (80.0-100.0); MEAN CORPUSCULAR HEMOGLOBIN 30.6 PG (27.0-34.0); MEAN CORPUSCULAR HGB CONC 35.6 % (32.0-36.0); MEAN PLATELET VOLUME 9.1 FL (7.0-11.0); MONO % 12.5 % (0.0-8.0); MONOCYTE # 1.2 TH/MM3 (0-0.9); NEUT % 71.4 % (16.0-70.0); PLATELET COUNT 231 TH/MM3 (150-450); RED BLOOD COUNT 2.68 MIL/MM3 (4.50-5.90); RED CELL DISTRIBUTION WIDTH 13.2 % (11.6-17.2); WHITE BLOOD COUNT 9.2 TH/MM3 (4.0-11.0)
--- NOTE | 2017-07-21 04:07 | RADRPT ---
EXAM DATE/TIME: 07/21/2017 02:54 [facility] COMPARISON: CHEST SINGLE AP, July 20, 2017, 6:00. INDICATIONS : Follow up trauma. MEDICAL HISTORY : None. SURGICAL HISTORY : None. ENCOUNTER: Subsequent ACUITY: 1 week PAIN SCORE: Non-responsive. LOCATION: Bilateral chest FINDINGS: Patchy mid and lower lung air space opacities are again seen on both sides. No pleural effusion seen. Right chest tube remains in place. No perceptible pneumothorax. Heart size stable, upper limits of normal. Endotracheal tube tip is approximately 3.5 cm above the elian. Nasogastric tube coiled in the stomac h. CONCLUSION: No significant change. Raphael Harvey MD on July 21, 2017 at 4:04 Board Certified Radiologist. This report was verified electronically.
[2017-07-21 04:16] LABS: BICARBONATE 27.2 MEQ/L (21.0-32.0); CALCIUM 7.7 MG/DL (8.5-10.1); CREATININE 0.67 MG/DL (0.60-1.30)
[2017-07-21] MEDS: PIPERACIL-TAZO 4.5 GM PREMIX 100 ML IV SCH ×4 (04:43→23:14)
[2017-07-21] MEDS: CHLORHEXIDINE 0.12% (ORAL KIT) 15 ML CUP MT SCH ×2 (08:00→20:43)
[2017-07-21] MEDS: CIPROFLOXACIN/HYDROCORTISONE OTIC 10 ML BTL RIGHT EAR SCH ×2 (09:00→20:44)
[2017-07-21] MEDS: SODIUM CHLORIDE 0.9% FLUSH 10 ML FLUSH IV FLUSH SCH ×2 (09:00→20:43)
[2017-07-21] MEDS: LACTULOSE SYRUP 20 GM/30 ML CUP PO SCH (09:59)
[2017-07-21] MEDS: MAGNESIUM HYDROXIDE SUSP 30 ML CUP PO SCH ×2 (09:59→20:44)
[2017-07-21] MEDS: levETIRAcetam INJ 500 MG in SODIUM CHLORIDE 0.9% INJ 100 ML IV SCH ×2 (09:59→20:42)
[2017-07-21] MEDS: DOCUSATE SODIUM 100 MG CAP PO SCH ×2 (10:00→20:43)
[2017-07-21] MEDS: FAMOTIDINE 20 MG TAB PO SCH ×2 (10:00→20:42)
[2017-07-21] MEDS: VALPROIC ACID SYRUP 250 MG/5 ML UDC PO SCH ×2 (10:03→20:43)
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
[2017-07-21] MEDS: DEXMEDETOMIDINE INJ 1,000 MCG in SODIUM CHLOR 0.9% 250 ML INJ 250 ML IV PRN (11:17)
--- NOTE | 2017-07-21 12:20 | HHI.NSPN ---
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 or closed reduction Right pneumothorax. Status post placement of chest tube. Follow-up chest x-rays Pulmonary. aggressive pulmonary toilette, nasotracheal suction, and breathing treatments with nebulizers. Daily PT and OT Nutrition. Tolerating Oral diet Renal. monitor closely urine output, BUN and creatinine Endocrine.Monitor serial Acu checks and SSI as needed in detail ID monitor for signs of infection Protonix for stress ulcer prophylaxis Greyson hose and SCD's for DVT prophylaxis Point Value = 1 Point Value = 2 Point Value = 3 Point Value = 5 Age 41-60 Minor surgery BMI > 25 kg/m2 Swollen legs Varicose veins or History of unexplained or recurrent spontaneous Oral contraceptives or hormone replacement Sepsis (< 1 month) Serious lung disease, including pneumonia (< 1 month) Abnormal pulmonary function Acute myocardial infarction Congestive heart failure (< 1 month) History of inflammatory bowel disease Medical patient at bed rest Age 61-74 Arthroscopic surgery Major open surgery (> 45 min) Laparoscopic surgery (> 45 min) Malignancy Confined to bed (> 72 hours) Immobilizing plaster cast Central venous access Age >= 75 History of VTE Family history of VTE Factor V Leiden Prothrombin [id number] Lupus anticoagulant Anticardiolipin antibodies Elevated serum homocysteine Heparin-induced thrombocytopenia Other congenital or acquired thrombophilia Stroke (< 1 month) Elective arthroplasty Hip, pelvis, or leg fracture Acute spinal cord injury (< 1 month) Point Value = 1 Point Value = 2 Point Value = 3 Point Value = 5 Age 41-60 Minor surgery BMI > 25 kg/m2 Swollen legs Varicose veins or History of unexplained or recurrent spontaneous Oral contraceptives or hormone replacement Sepsis (< 1 month) Serious lung disease, including pneumonia (< 1 month) Abnormal pulmonary function Acute myocardial infarction Congestive heart failure (< 1 month) History of inflammatory bowel disease Medical patient at bed rest Age 61-74 Arthroscopic surgery Major open surgery (> 45 min) Laparoscopic surgery (> 45 min) Malignancy Confined to bed (> 72 hours) Immobilizing plaster cast Central venous access Age >= 75 History of VTE Family history of VTE Factor V Leiden Prothrombin [id number] Lupus anticoagulant Anticardiolipin antibodies Elevated serum homocysteine Heparin-induced thrombocytopenia Other congenital or acquired thrombophilia Stroke (< 1 month) Elective arthroplasty Hip, pelvis, or leg fracture Acute spinal cord injury (< 1 month) Further recommendations will be provided depending on the patient's clinical evaluation and follow up studies. The exam, history, and the medical decision-making described in the above note were completed with the assistance of the mid-level provider. I reviewed and agree with the findings presented. I attest that I had a [id number] encounter with the patient on the same day, and personally performed and documented my assessment and findings in the medical record. (Maximo Ramírez MD) Tashia Dempsey Jul 21, 2017 12:20 Maximo Ramírez MD Jul 21, 2017 14:44
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
[2017-07-21] MEDS ORDERED: Vancomycin Consult Pharmacy 1 EA OTHER SCH (14:45)
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
[2017-07-21] MEDS ORDERED: VANCOMYCIN INJ 1,000 MG in SODIUM CHLOR 0.9% 250 ML INJ 250 ML IV SCH (16:00)
[2017-07-21] MEDS: VANCOMYCIN INJ 1,500 MG in SODIUM CHLORID 0.9% 500 ML INJ 500 ML IV SCH (17:00)
[2017-07-22] VITALS (15 sets, daily range): BP systolic 105–126; BP diastolic 50–60; PULSE 49–79; RESP 18–24; TEMP 98.7–99.9; O2SAT 98–100
[2017-07-22] MEDS: VANCOMYCIN INJ 1,500 MG in SODIUM CHLORID 0.9% 500 ML INJ 500 ML IV SCH ×3 (02:37→17:37)
[2017-07-22] MEDS: guanFACINE HCL 1 MG TAB PO SCH ×3 (02:37→18:30)
[2017-07-22] MEDS: oxyCODONE HCL ORAL CONC 5 MG/0.25 ML SYRINGE PO SCH ×6 (02:38→23:14)
[2017-07-22] MEDS: CHLORHEXIDINE GLUCONATE 2 % 1 PACK (2 CLOTHS) TOP SCH (03:15)
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
[2017-07-22] MEDS: PIPERACIL-TAZO 4.5 GM PREMIX 100 ML IV SCH ×4 (05:00→22:21)
[2017-07-22 05:26] LABS: AUTOMATED NEUTROPHIL # 5.8 TH/MM3 (1.8-7.7); BASOPHIL % 0.3 % (0.0-2.0); EOSINOPHIL # 0.3 TH/MM3 (0-0.4); EOSINOPHIL % 3.8 % (0.0-4.0); HEMATOCRIT 23.8 % (39.0-51.0); HEMOGLOBIN 8.4 GM/DL (13.0-17.0); LYMPH % 14.1 % (9.0-44.0); LYMPHOCYTE # 1.2 TH/MM3 (1.0-4.8); MEAN CELL VOLUME 85.6 FL (80.0-100.0); MEAN CORPUSCULAR HEMOGLOBIN 30.3 PG (27.0-34.0); MEAN CORPUSCULAR HGB CONC 35.3 % (32.0-36.0); MEAN PLATELET VOLUME 9.1 FL (7.0-11.0); MONO % 11.8 % (0.0-8.0); PLATELET COUNT 274 TH/MM3 (150-450); RED BLOOD COUNT 2.78 MIL/MM3 (4.50-5.90); RED CELL DISTRIBUTION WIDTH 13.2 % (11.6-17.2); WHITE BLOOD COUNT 8.3 TH/MM3 (4.0-11.0)
[2017-07-22] MEDS: GLYCOPYRROLATE 0.2 MG/ML VIAL IV PUSH SCH ×4 (05:38→23:15)
[2017-07-22 05:43] LABS: ALBUMIN 2.2 GM/DL (3.4-5.0); ALT (GPT) 213 U/L (9-52); AST (GOT) 555 U/L (15-39); BICARBONATE 25.9 MEQ/L (21.0-32.0); BLOOD UREA NITROGEN 15 MG/DL (7-18); CALCIUM 7.7 MG/DL (8.5-10.1); CHLORIDE 103 MEQ/L (98-107); CREATININE 0.56 MG/DL (0.60-1.30); GLOMERULAR FILTRATION RATE 186 ML/MIN (>89); GLUCOSE,RANDOM 111 MG/DL (74-106); SODIUM (NA) 137 MEQ/L (136-145)
[2017-07-22 05:45] LABS: ALKALINE PHOSPHATASE 45 U/L (45-117); TOTAL BILIRUBIN ADULT 0.8 MG/DL (0.2-1.0); TOTAL PROTEIN 5.8 GM/DL (6.4-8.2)
[2017-07-22] MEDS: QUEtiapine FUMARATE 25 MG TAB PO SCH ×2 (07:48→20:14)
[2017-07-22] MEDS: MAGNESIUM HYDROXIDE SUSP 30 ML CUP PO SCH ×2 (07:48→20:14)
[2017-07-22] MEDS: FAMOTIDINE 20 MG TAB PO SCH ×2 (07:48→20:14)
[2017-07-22] MEDS: DOCUSATE SODIUM 100 MG CAP PO SCH ×2 (07:48→20:14)
[2017-07-22] MEDS: LACTULOSE SYRUP 20 GM/30 ML CUP PO SCH (07:48)
[2017-07-22] MEDS: VALPROIC ACID SYRUP 250 MG/5 ML UDC PO SCH ×2 (07:49→20:14)
[2017-07-22] MEDS: CHLORHEXIDINE 0.12% (ORAL KIT) 15 ML CUP MT SCH ×2 (07:49→19:47)
[2017-07-22] MEDS: CIPROFLOXACIN/HYDROCORTISONE OTIC 10 ML BTL RIGHT EAR SCH ×2 (09:00→20:15)
[2017-07-22] MEDS: SODIUM CHLORIDE 0.9% FLUSH 10 ML FLUSH IV FLUSH SCH ×2 (09:00→19:47)
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
[2017-07-22] MEDS: PROPOFOL 1000 MG/100 ML INJ 100 ML IV PRN ×2 (11:35→16:38)
[2017-07-22] MEDS ORDERED: RESP: ALBUTEROL 2.5 MG/3 ML NEB (PRN) NEB (12:00)
[2017-07-22] MEDS: DEXMEDETOMIDINE INJ 1,000 MCG in SODIUM CHLOR 0.9% 250 ML INJ 250 ML IV PRN (13:02)
[2017-07-22] MEDS: ARTIFICIAL TEARS OPTH SOLN 15 ML BTL EACH EYE SCH ×2 (14:00→22:22)
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
[2017-07-22] MEDS ORDERED: PHARMACY ORDERED LAB ONE (16:45)
--- NOTE | 2017-07-22 17:31 | HHI.NSPN ---
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 studies. Maximo Ramírez MD Jul 22, 2017 17:31
--- NOTE | 2017-07-22 17:57 | RADRPT ---
EXAM DATE/TIME: 07/22/2017 17:08 [facility] COMPARISON: No previous studies available for comparison. INDICATIONS : Increased lab values. MEDICAL HISTORY : [facility], [facility]. SURGICAL HISTORY : [facility] surgeries. ENCOUNTER: Initial ACUITY: 1 week PAIN SCORE: Nonresponsive. LOCATION: Abdomen. MEASUREMENTS: LIVER: 14.9 cm length COMMON DUCT: 3 mm RIGHT KIDNEY: 11.5 x 5.8 x 5.5 cm SPLEEN: 14.3 cm length FINDINGS: LIVER: Normal echotexture without focal lesion or ductal dilatation. COMMON DUCT: No intraluminal mass or stone visualized. GALLBLADDER: Nonspecific mild diffuse color wall thickening. Gallbladder is nondistended. No gallstones identified . PANCREAS: Pancreas not visualized. RIGHT KIDNEY: No hydronephrosis, stone or mass. SPLEEN: No focal lesion. Spleen is enlarged measuring 14.3 cm in craniocaudal dimension. No focal mass. CONCLUSION: 1. Moderate splenomegaly. 2. Nonspecific mild diffuse gallbladder wall thickening. No gallstones identified. Dick Velez MD on July 22, 2017 at 17:52 Board Certified Radiologist. This report was verified electronically.
[2017-07-23] VITALS (14 sets, daily range): BP systolic 106–121; BP diastolic 51–57; PULSE 58–76; RESP 17–21; TEMP 99.3–101.4; O2SAT 98–100
[2017-07-23] MEDS: VANCOMYCIN INJ 1,500 MG in SODIUM CHLORID 0.9% 500 ML INJ 500 ML IV SCH ×2 (00:56→08:31)
[2017-07-23] MEDS: PROPOFOL 1000 MG/100 ML INJ 100 ML IV PRN ×5 (01:10→18:38)
[2017-07-23] MEDS: guanFACINE HCL 1 MG TAB PO SCH ×3 (02:00→18:00)
[2017-07-23] MEDS: oxyCODONE HCL ORAL CONC 5 MG/0.25 ML SYRINGE PO SCH ×6 (03:00→18:36)
[2017-07-23] MEDS: CHLORHEXIDINE GLUCONATE 2 % 1 PACK (2 CLOTHS) TOP SCH (03:22)
[2017-07-23 03:38] LABS: HEMATOCRIT 24.3 % (39.0-51.0); HEMOGLOBIN 8.6 GM/DL (13.0-17.0); MEAN CELL VOLUME 86.1 FL (80.0-100.0); MEAN CORPUSCULAR HEMOGLOBIN 30.4 PG (27.0-34.0); MEAN CORPUSCULAR HGB CONC 35.4 % (32.0-36.0); MEAN PLATELET VOLUME 8.9 FL (7.0-11.0); PLATELET COUNT 323 TH/MM3 (150-450); RED BLOOD COUNT 2.82 MIL/MM3 (4.50-5.90); RED CELL DISTRIBUTION WIDTH 12.8 % (11.6-17.2); WHITE BLOOD COUNT 9.1 TH/MM3 (4.0-11.0)
[2017-07-23 04:03] LABS: ALBUMIN 2.1 GM/DL (3.4-5.0); BICARBONATE 28.1 MEQ/L (21.0-32.0); CALCIUM 7.8 MG/DL (8.5-10.1); CREATININE 0.59 MG/DL (0.60-1.30); DIRECT BILIRUBIN ADULT 0.2 MG/DL (0.0-0.2); MAGNESIUM 1.9 MG/DL (1.5-2.5)
[2017-07-23 04:07] LABS: INDIRECT BILIRUBIN 0.6 MG/DL (0.0-0.8); PHOSPHORUS 3.7 MG/DL (2.5-4.9); TOTAL BILIRUBIN ADULT 0.8 MG/DL (0.2-1.0); TOTAL PROTEIN 5.7 GM/DL (6.4-8.2)
[2017-07-23] MEDS: PIPERACIL-TAZO 4.5 GM PREMIX 100 ML IV SCH (04:19)
[2017-07-23] MEDS: ARTIFICIAL TEARS OPTH SOLN 15 ML BTL EACH EYE SCH ×3 (04:26→21:27)
[2017-07-23] MEDS: GLYCOPYRROLATE 0.2 MG/ML VIAL IV PUSH SCH ×3 (04:26→17:00)
[2017-07-23] MEDS: DEXMEDETOMIDINE INJ 1,000 MCG in SODIUM CHLOR 0.9% 250 ML INJ 250 ML IV PRN (06:14)
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
[2017-07-23] MEDS: CHLORHEXIDINE 0.12% (ORAL KIT) 15 ML CUP MT SCH ×2 (08:00→21:19)
[2017-07-23] MEDS: CIPROFLOXACIN/HYDROCORTISONE OTIC 10 ML BTL RIGHT EAR SCH ×2 (08:20→21:27)
[2017-07-23] MEDS: LACTULOSE SYRUP 20 GM/30 ML CUP PO SCH (08:20)
[2017-07-23] MEDS: DOCUSATE SODIUM 100 MG CAP PO SCH ×2 (08:20→21:00)
[2017-07-23] MEDS: QUEtiapine FUMARATE 25 MG TAB PO SCH ×2 (08:20→21:27)
[2017-07-23] MEDS: MAGNESIUM HYDROXIDE SUSP 30 ML CUP PO SCH ×2 (08:20→21:00)
[2017-07-23] MEDS: VALPROIC ACID SYRUP 250 MG/5 ML UDC PO SCH ×2 (08:20→21:27)
[2017-07-23] MEDS: FAMOTIDINE 20 MG TAB PO SCH ×2 (08:20→21:27)
[2017-07-23] MEDS: SODIUM CHLORIDE 0.9% FLUSH 10 ML FLUSH IV FLUSH SCH ×2 (08:20→21:00)
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
[2017-07-23] MEDS: MIDAZOLAM 100 MG/100 ML INJ 100 ML IV PRN (11:02)
[2017-07-23] MEDS: cefTRIAXone INJ 2,000 MG in SODIUM CHLORIDE 0.9% INJ 100 ML IV SCH (11:41)
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
[2017-07-23] MEDS: cloNIDine HCL 0.2 MG TAB PO SCH ×2 (14:00→22:00)
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
[2017-07-23] MEDS ORDERED: PHARMACY ORDERED LAB ONE (16:45)
[2017-07-23] MEDS: MORPHINE SULFATE 8 MG/ML INJ IV PUSH PRN (17:34)
--- NOTE | 2017-07-23 18:57 | HHI.NSPN ---
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 Malignancy Confined to bed (> 72 hours) Immobilizing plaster cast Central venous access Age >= 75 History of VTE Family history of VTE Factor V Leiden Prothrombin [id number] Lupus anticoagulant Anticardiolipin antibodies Elevated serum homocysteine Heparin-induced thrombocytopenia Other congenital or acquired thrombophilia Stroke (< 1 month) Elective arthroplasty Hip, pelvis, or leg fracture Acute spinal cord injury (< 1 month) Further recommendations will be provided depending on the patient's clinical evaluation and follow up studies. Maximo Ramírez MD Jul 23, 2017 18:57
[2017-07-23] MEDS: ACETAMINOPHEN 650 MG/20.3 ML UDC PO PRN (21:30)
[2017-07-24] VITALS (19 sets, daily range): BP systolic 110–133; BP diastolic 51–66; PULSE 72–123; RESP 20–23; TEMP 99.4–101.1; O2SAT 94–100
[2017-07-24] MEDS: PROPOFOL 1000 MG/100 ML INJ 100 ML IV PRN ×5 (00:03→19:01)
[2017-07-24] MEDS: oxyCODONE HCL ORAL CONC 5 MG/0.25 ML SYRINGE PO SCH ×7 (00:03→22:10)
[2017-07-24] MEDS: GLYCOPYRROLATE 0.2 MG/ML VIAL IV PUSH SCH ×5 (00:04→21:32)
[2017-07-24] MEDS: guanFACINE HCL 1 MG TAB PO SCH ×3 (02:14→18:22)
[2017-07-24 05:02] LABS: AUTOMATED NEUTROPHIL # 9.3 TH/MM3 (1.8-7.7); BASOPHIL % 0.1 % (0.0-2.0); EOSINOPHIL # 0.2 TH/MM3 (0-0.4); EOSINOPHIL % 1.8 % (0.0-4.0); HEMATOCRIT 28.6 % (39.0-51.0); HEMOGLOBIN 9.9 GM/DL (13.0-17.0); LYMPH % 8.4 % (9.0-44.0); MEAN CELL VOLUME 87.5 FL (80.0-100.0); MEAN CORPUSCULAR HEMOGLOBIN 30.3 PG (27.0-34.0); MEAN CORPUSCULAR HGB CONC 34.6 % (32.0-36.0); MEAN PLATELET VOLUME 8.5 FL (7.0-11.0); MONO % 8.2 % (0.0-8.0); MONOCYTE # 0.9 TH/MM3 (0-0.9); NEUT % 81.5 % (16.0-70.0); PLATELET COUNT 524 TH/MM3 (150-450); RED BLOOD COUNT 3.27 MIL/MM3 (4.50-5.90); RED CELL DISTRIBUTION WIDTH 13.4 % (11.6-17.2); WHITE BLOOD COUNT 11.5 TH/MM3 (4.0-11.0)
[2017-07-24 05:12] LABS: ALBUMIN 2.5 GM/DL (3.4-5.0); AST (GOT) 308 U/L (15-39); BICARBONATE 30.6 MEQ/L (21.0-32.0); BLOOD UREA NITROGEN 11 MG/DL (7-18); CALCIUM 8.6 MG/DL (8.5-10.1); CHLORIDE 100 MEQ/L (98-107); CREATININE 0.74 MG/DL (0.60-1.30); GLOMERULAR FILTRATION RATE 135 ML/MIN (>89); GLUCOSE,RANDOM 110 MG/DL (74-106); SODIUM (NA) 137 MEQ/L (136-145)
[2017-07-24 05:15] LABS: ALKALINE PHOSPHATASE 58 U/L (45-117); ALT (GPT) 199 U/L (9-52); TOTAL BILIRUBIN ADULT 0.5 MG/DL (0.2-1.0); TOTAL PROTEIN 6.8 GM/DL (6.4-8.2)
[2017-07-24] MEDS: CHLORHEXIDINE GLUCONATE 2 % 1 PACK (2 CLOTHS) TOP SCH ×2 (05:53→23:29)
[2017-07-24] MEDS: ARTIFICIAL TEARS OPTH SOLN 15 ML BTL EACH EYE SCH ×3 (05:54→21:42)
[2017-07-24] MEDS: cloNIDine HCL 0.2 MG TAB PO SCH ×3 (06:00→21:41)
[2017-07-24] MEDS: MIDAZOLAM 100 MG/100 ML INJ 100 ML IV PRN (06:36)
[2017-07-24] MEDS: SODIUM CHLORIDE 0.9% FLUSH 10 ML FLUSH IV FLUSH SCH ×2 (08:10→21:42)
[2017-07-24] MEDS: CHLORHEXIDINE 0.12% (ORAL KIT) 15 ML CUP MT SCH ×2 (08:10→20:20)
[2017-07-24] MEDS: VALPROIC ACID SYRUP 250 MG/5 ML UDC PO SCH ×2 (08:11→21:41)
[2017-07-24] MEDS: MAGNESIUM HYDROXIDE SUSP 30 ML CUP PO SCH ×2 (08:11→21:00)
[2017-07-24] MEDS: LACTULOSE SYRUP 20 GM/30 ML CUP PO SCH (08:11)
[2017-07-24] MEDS: DOCUSATE SODIUM 100 MG CAP PO SCH ×2 (08:11→21:42)
[2017-07-24] MEDS: QUEtiapine FUMARATE 25 MG TAB PO SCH ×2 (08:12→21:42)
[2017-07-24] MEDS: FAMOTIDINE 20 MG TAB PO SCH ×2 (08:12→21:41)
[2017-07-24] MEDS: CIPROFLOXACIN/HYDROCORTISONE OTIC 10 ML BTL RIGHT EAR SCH ×2 (08:13→21:42)
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
[2017-07-24 09:01] LABS: BANDS 3 % (0-6); LYMPHOCYTES 7 % (9-44); MONOCYTES 4 % (0-8); MYELOCYTES 2 % (0-0); NEUTROPHIL # MANUAL DIFF 10.2 TH/MM3 (1.8-7.7); POLYS (SEG NEUTROPHILS) 84 % (16-70)
--- NOTE | 2017-07-24 10:27 | GIPROC ---
[facility] [address] [facility]. 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 TOPICAL ANESTHETIC: none CONSENT: The patient understands the risks and benefits of the procedure and understands that these risks include, but are not limited to: sedation, allergic reaction, infection, perforation and/or bleeding. Alternative means of evaluation and treatment include, among others: physical exam, x-rays, and/or surgical intervention. The patient elects to proceed with this endoscopic procedure. medical equipment was checked for proper function. Hand hygiene and appropriate measures for infection prevention was taken. After the risks, benefits and alternatives of the procedure were thoroughly explained, Informed consent was verified, confirmed and timeout was successfully executed by the treatment team. The patient was anesthetized with topical anesthesia and the Pentax EG-[id number] endoscope was introduced through the mouth and advanced to the second portion of the duodenum. The instrument was slowly withdrawn as the mucosa was fully examined. The upper, middle, and distal third of the esophagus were carefully inspected and no abnormalities were noted. The z-line was well seen at the GEJ. The endoscope was pushed into the fundus which was normal including a retroflexed view. The antrum, first and second part of the duodenum were unremarkable. The stomach was then inflated with air, and by a combination of transillumination and manual palpation, the site for the gastrostomy tube placement was selected and marked on the anterior abdominal wall. The skin of the anterior abdomen was surgically prepped and draped with sterile towels. Utilizing strict sterile technique, the selected site was then anesthetized with 1% xylocaine by injection into the skin and subcutaneous tissue. A 1 cm incision was made through the skin and subcutaneous tissue, and the needle/cannula assembly was then passed through the abdominal wall and through the anterior wall of the stomach, maintaining visualization with the endoscope. A snare device previously placed through the instrument channel was then opened and placed around the cannula, the needle was removed, and the insertion wire was passed through the cannula and into the stomach lumen. The snare was then loosened from the cannula, and repositioned to snare the insertion wire. The snare was then pulled up to the endoscope distal tip, and the scope was then withdrawn bringing with it the snare and insertion wire. The insertion wire was then released from the snare, and then loop-attached to the Bard 20 Fr gastrostomy tube. Using the "pull technique", the G-tube was then pulled into place by traction on the insertion wire at the abdominal wall end. The G-tube insertion site was then cleansed once again, and the external bolster was placed over the tube to secure it to the abdominal wall. A sterile dressing was then applied, and the procedure terminated. no abnormalities The gastroscope was then slowly withdrawn and removed. ADVERSE EVENT: There were no complications. IMPRESSIONS: The upper, middle, and distal third of the esophagus were carefully inspected and no abnormalities were noted. The z-line was well seen at the GEJ. The endoscope was pushed into the fundus which was normal including a retroflexed view. The antrum, first and second part of the duodenum were unremarkable. RECOMMENDATIONS: PEG recomendations: 1- NPO for 6 hours except for meds 2- Flush PEG tube every 6 hours with water and after each PEG feeding 3- May resume regular diet in the morning 4- May use Ensure or Boost etc. for PEG tube feeding REPEAT EXAM: procedure as needed Franny Trevizo MD eSigned: Franny Trevizo MD 07/24/2017 10:27 AM cc: PATIENT NAME: Rickie Angel MR#: [id number]
[2017-07-24] MEDS: ENOXAPARIN SODIUM 30 MG/0.3 ML SYRINGE SQ SCH (11:00)
[2017-07-24] MEDS: cefTRIAXone INJ 2,000 MG in SODIUM CHLORIDE 0.9% INJ 100 ML IV SCH (11:02)
[2017-07-24] MEDS ORDERED: fentaNYL CITRATE 250 MCG/5 ML AMP IV PUSH ONE (11:15)
[2017-07-24] MEDS ORDERED: ROCURONIUM INJ 50 MG/5 ML VIAL IV ONE (11:15)
[2017-07-24] MEDS ORDERED: MIDAZOLAM HCL 5 MG/5 ML VIAL IV PUSH ONE (11:15)
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
[2017-07-24] MEDS ORDERED: PROPOFOL 200 MG/20 ML AMP IV ONE (12:00)
[2017-07-24] MEDS ORDERED: ROCURONIUM INJ 50 MG/5 ML SYRINGE IV PUSH ONE (12:00)
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
[2017-07-24] MEDS: ACETAMINOPHEN 650 MG/20.3 ML UDC PO PRN (15:22)
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
--- NOTE | 2017-07-24 17:07 | MH ---
cc: Angel Caballero MD DATE OF ADMISSION: 07/14/2017 PREOPERATIVE DIAGNOSIS: Traumatic brain injury, respiratory failure. POSTOPERATIVE DIAGNOSIS: Traumatic brain injury, respiratory failure. PROCEDURE: [place] tracheostomy and bronchoscopy. SURGEON: Angel Caballero MD SILK SCREEN REPAIRER: Steven Lim MD ANESTHESIA: Propofol and fentanyl as well as 1% Xylocaine. DESCRIPTION OF PROCEDURE: Patient prepped and draped in usual fashion. Small vertical incision made in the lower neck, deepened down bluntly with hemostat to the level of the trachea. Level of second to third tracheal ring is felt and then the Angiocath is inserted under bronchoscopic vision. Through the Angiocath, a guidewire is placed. Over the guidewire, a punch dilator is placed, followed by the [place] Rh[place] dilator. This is followed by the 8 Shiley tracheostomy, which is sutured in place with 2-0 Prolene, connected to the ventilator. End tidal CO2 checked and position ascertained with bronchoscope. Patient tolerated the procedure well. MD ANGELA Henderson/HERACLIO , 04:40 PM , 05:06 PM
[2017-07-24] MEDS ORDERED: ENOXAPARIN SODIUM 40 MG/0.4 ML SYRINGE SQ SCH (21:00)
[2017-07-24] MEDS: MORPHINE SULFATE 8 MG/ML INJ IV PUSH PRN (21:41)
[2017-07-25] VITALS (17 sets, daily range): BP systolic 100–135; BP diastolic 46–60; PULSE 60–94; RESP 14–28; TEMP 99.2–100.6; O2SAT 94–100
[2017-07-25] MEDS: ACETAMINOPHEN 650 MG/20.3 ML UDC PO PRN ×2 (00:08→20:11)
[2017-07-25] MEDS: PROPOFOL 1000 MG/100 ML INJ 100 ML IV PRN ×2 (02:19→06:45)
[2017-07-25] MEDS: guanFACINE HCL 1 MG TAB PO SCH ×3 (02:23→17:52)
[2017-07-25] MEDS: oxyCODONE HCL ORAL CONC 5 MG/0.25 ML SYRINGE PO SCH ×7 (02:23→23:55)
[2017-07-25] MEDS: GLYCOPYRROLATE 0.2 MG/ML VIAL IV PUSH SCH ×4 (05:00→21:43)
[2017-07-25] MEDS: cloNIDine HCL 0.2 MG TAB PO SCH (06:45)
[2017-07-25] MEDS: ARTIFICIAL TEARS OPTH SOLN 15 ML BTL EACH EYE SCH ×3 (06:46→23:55)
[2017-07-25 07:21] LABS: AUTOMATED NEUTROPHIL # 9.5 TH/MM3 (1.8-7.7); BASOPHIL # 0.1 TH/MM3 (0-0.2); BASOPHIL % 0.5 % (0.0-2.0); EOSINOPHIL # 0.2 TH/MM3 (0-0.4); EOSINOPHIL % 1.4 % (0.0-4.0); HEMATOCRIT 27.3 % (39.0-51.0); HEMOGLOBIN 9.4 GM/DL (13.0-17.0); LYMPH % 8.9 % (9.0-44.0); LYMPHOCYTE # 1.1 TH/MM3 (1.0-4.8); MEAN CELL VOLUME 88.1 FL (80.0-100.0); MEAN CORPUSCULAR HEMOGLOBIN 30.3 PG (27.0-34.0); MEAN CORPUSCULAR HGB CONC 34.4 % (32.0-36.0); MEAN PLATELET VOLUME 8.2 FL (7.0-11.0); MONO % 9.3 % (0.0-8.0); MONOCYTE # 1.1 TH/MM3 (0-0.9); NEUT % 79.9 % (16.0-70.0); PLATELET COUNT 536 TH/MM3 (150-450); RED CELL DISTRIBUTION WIDTH 13.7 % (11.6-17.2); WHITE BLOOD COUNT 11.9 TH/MM3 (4.0-11.0)
[2017-07-25 07:53] LABS: ALBUMIN 2.5 GM/DL (3.4-5.0); AST (GOT) 322 U/L (15-39); BLOOD UREA NITROGEN 15 MG/DL (7-18); CALCIUM 8.9 MG/DL (8.5-10.1); CHLORIDE 106 MEQ/L (98-107); GLOMERULAR FILTRATION RATE 144 ML/MIN (>89); GLUCOSE,RANDOM 94 MG/DL (74-106); SODIUM (NA) 144 MEQ/L (136-145)
[2017-07-25 07:57] LABS: ALKALINE PHOSPHATASE 52 U/L (45-117); ALT (GPT) 251 U/L (9-52); TOTAL BILIRUBIN ADULT 0.6 MG/DL (0.2-1.0); TOTAL PROTEIN 6.8 GM/DL (6.4-8.2)
[2017-07-25] MEDS: CHLORHEXIDINE 0.12% (ORAL KIT) 15 ML CUP MT SCH ×2 (08:07→20:03)
[2017-07-25] MEDS: DOCUSATE SODIUM 100 MG CAP PO SCH ×2 (08:08→19:51)
[2017-07-25] MEDS: MAGNESIUM HYDROXIDE SUSP 30 ML CUP PO SCH ×2 (08:08→20:03)
[2017-07-25] MEDS: VALPROIC ACID SYRUP 250 MG/5 ML UDC PO SCH (08:08)
[2017-07-25] MEDS: SODIUM CHLORIDE 0.9% FLUSH 10 ML FLUSH IV FLUSH SCH ×2 (08:08→20:04)
[2017-07-25] MEDS: FAMOTIDINE 20 MG TAB PO SCH ×2 (08:08→19:51)
[2017-07-25] MEDS: LACTULOSE SYRUP 20 GM/30 ML CUP PO SCH (08:08)
[2017-07-25] MEDS: QUEtiapine FUMARATE 25 MG TAB PO SCH ×3 (08:08→19:51)
[2017-07-25] MEDS: CIPROFLOXACIN/HYDROCORTISONE OTIC 10 ML BTL RIGHT EAR SCH ×2 (08:09→20:04)
[2017-07-25] MEDS ORDERED: DEXMEDETOMIDINE INJ 200 MCG in SODIUM CHLORIDE 0.9% INJ 50 ML IV PRN (08:30)
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
[2017-07-25] MEDS ORDERED: QUEtiapine FUMARATE 100 MG TAB PO ONE (09:00)
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
[2017-07-25] MEDS: cefTRIAXone INJ 2,000 MG in SODIUM CHLORIDE 0.9% INJ 100 ML IV SCH (10:52)
[2017-07-25] MEDS: LORazepam 2 MG/ML VIAL IV PUSH PRN ×2 (10:52→18:24)
[2017-07-25] MEDS: ENOXAPARIN SODIUM 30 MG/0.3 ML SYRINGE SQ SCH ×2 (10:54→23:55)
--- NOTE | 2017-07-25 11:04 | PD.PROCEDR ---
Procedure Note Procedure DX: Acute respiratory failure, inability to wean OP: Bronchoscopy for percutaneous tracheostomy Procedure: Time out performed. Bronchoscope delivered through a sideport in the ventilator circuit and passed through the orotracheal tube. The tracheobronchial tree revealed normal anatomy and the mucosa was normal. Moderate amount of white secretions suctioned out from bilateral lower lobe. The scope and ET tube were then withdrawn to the level of the cricoid and used for visualization of the anterior tracheal wall during insertion of a percutaneous tracheostomy. After insertion the scope was passed through the new trach tube and visualized in good position above the elian and with no bleeding from above. The vent circuit was rapidly transferred to the new trach site and full vent volumes were observed returning. O2 saturation was maintained over 95% throughout the procedure. Steven Lim MD Jul 25, 2017 11:04
[2017-07-25] MEDS ORDERED: DEXMEDETOMIDINE INJ 1,000 MCG in SODIUM CHLOR 0.9% 250 ML INJ 240 ML IV PRN (11:15)
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
[2017-07-25] MEDS: PROPRANOLOL HCL 10 MG TAB PO SCH ×2 (13:04→21:43)
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
[2017-07-25] MEDS: cloNIDine HCL 0.3 MG TAB PO SCH ×2 (14:00→23:54)
[2017-07-25] MEDS ORDERED: cloNIDine HCL 0.3 MG TAB PO SCH (14:00)
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
[2017-07-25] MEDS: MORPHINE SULFATE 8 MG/ML INJ IV PUSH PRN (18:24)
[2017-07-25] MEDS: CHLORHEXIDINE GLUCONATE 2 % 1 PACK (2 CLOTHS) TOP SCH (19:36)
[2017-07-25] MEDS: HALOPERIDOL LACTATE 5 MG/ML AMP IV PUSH PRN (19:51)
[2017-07-26] VITALS (16 sets, daily range): BP systolic 103–153; BP diastolic 53–71; PULSE 60–142; RESP 12–27; TEMP 98.7–99.9; O2SAT 98–100
[2017-07-26] MEDS: guanFACINE HCL 1 MG TAB PO SCH ×3 (02:00→18:00)
[2017-07-26] MEDS: LORazepam 2 MG/ML VIAL IV PUSH PRN (02:06)
[2017-07-26] MEDS: oxyCODONE HCL ORAL CONC 5 MG/0.25 ML SYRINGE PO SCH ×6 (03:58→22:47)
[2017-07-26] MEDS: GLYCOPYRROLATE 0.2 MG/ML VIAL IV PUSH SCH ×4 (03:59→22:46)
[2017-07-26] MEDS: QUEtiapine FUMARATE 25 MG TAB PO SCH ×3 (04:01→21:10)
[2017-07-26 05:36] LABS: AUTOMATED NEUTROPHIL # 7.8 TH/MM3 (1.8-7.7); BASOPHIL # 0.1 TH/MM3 (0-0.2); BASOPHIL % 0.6 % (0.0-2.0); EOSINOPHIL # 0.2 TH/MM3 (0-0.4); EOSINOPHIL % 2.4 % (0.0-4.0); HEMATOCRIT 26.1 % (39.0-51.0); HEMOGLOBIN 8.9 GM/DL (13.0-17.0); LYMPH % 10.4 % (9.0-44.0); LYMPHOCYTE # 1.1 TH/MM3 (1.0-4.8); MEAN CELL VOLUME 88.5 FL (80.0-100.0); MEAN CORPUSCULAR HEMOGLOBIN 30.2 PG (27.0-34.0); MEAN CORPUSCULAR HGB CONC 34.1 % (32.0-36.0); MEAN PLATELET VOLUME 8.4 FL (7.0-11.0); MONO % 9.9 % (0.0-8.0); NEUT % 76.7 % (16.0-70.0); PLATELET COUNT 522 TH/MM3 (150-450); RED BLOOD COUNT 2.95 MIL/MM3 (4.50-5.90); RED CELL DISTRIBUTION WIDTH 13.4 % (11.6-17.2); WHITE BLOOD COUNT 10.2 TH/MM3 (4.0-11.0)
[2017-07-26] MEDS: cloNIDine HCL 0.3 MG TAB PO SCH ×3 (06:00→21:10)
[2017-07-26] MEDS: PROPRANOLOL HCL 10 MG TAB PO SCH ×3 (06:00→22:45)
[2017-07-26 06:01] LABS: ALBUMIN 2.5 GM/DL (3.4-5.0); ALT (GPT) 251 U/L (9-52); AST (GOT) 246 U/L (15-39); BLOOD UREA NITROGEN 20 MG/DL (7-18); CHLORIDE 105 MEQ/L (98-107); CREATININE 0.67 MG/DL (0.60-1.30); GLOMERULAR FILTRATION RATE 151 ML/MIN (>89); GLUCOSE,RANDOM 117 MG/DL (74-106); SODIUM (NA) 144 MEQ/L (136-145)
--- NOTE | 2017-07-26 06:02 | RADRPT ---
EXAM DATE/TIME: 07/26/2017 05:20 [facility] COMPARISON: CHEST SINGLE AP, July 23, 2017, 5:28. INDICATIONS : Short of breath. MEDICAL HISTORY : None. SURGICAL HISTORY : None. ENCOUNTER: Subsequent ACUITY: 1 week PAIN SCORE: 0/10 LOCATION: Bilateral chest FINDINGS: A single portable frontal view of the chest shows interval placement of a tracheostomy tube. Lungs ar e well expanded and clear. Heart is at the upper limits of normal in terms of size. No effusions or p neumothoraces. CONCLUSION: Clear lungs. Gonzalo Harding Jr., MD on July 26, 2017 at 6:00 Board Certified Radiologist. This report was verified electronically.
[2017-07-26 06:04] LABS: ALKALINE PHOSPHATASE 62 U/L (45-117); TOTAL BILIRUBIN ADULT 0.5 MG/DL (0.2-1.0)
[2017-07-26] MEDS: ARTIFICIAL TEARS OPTH SOLN 15 ML BTL EACH EYE SCH ×3 (06:45→21:45)
[2017-07-26] MEDS: CHLORHEXIDINE 0.12% (ORAL KIT) 15 ML CUP MT SCH ×2 (07:36→20:00)
[2017-07-26] MEDS: DOCUSATE SODIUM 100 MG CAP PO SCH ×2 (08:39→21:00)
[2017-07-26] MEDS: SODIUM CHLORIDE 0.9% FLUSH 10 ML FLUSH IV FLUSH SCH ×2 (08:39→21:00)
[2017-07-26] MEDS: CIPROFLOXACIN/HYDROCORTISONE OTIC 10 ML BTL RIGHT EAR SCH ×2 (08:39→21:00)
[2017-07-26] MEDS: MAGNESIUM HYDROXIDE SUSP 30 ML CUP PO SCH ×2 (08:39→21:00)
[2017-07-26] MEDS: FAMOTIDINE 20 MG TAB PO SCH ×2 (08:39→21:10)
[2017-07-26] MEDS: LACTULOSE SYRUP 20 GM/30 ML CUP PO SCH (08:39)
[2017-07-26] MEDS: HALOPERIDOL LACTATE 5 MG/ML AMP IV PUSH PRN (08:40)
[2017-07-26] MEDS: MORPHINE SULFATE 8 MG/ML INJ IV PUSH PRN ×3 (08:53→21:12)
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
[2017-07-26] MEDS: ENOXAPARIN SODIUM 30 MG/0.3 ML SYRINGE SQ SCH ×2 (11:00→22:51)
[2017-07-26] MEDS: cefTRIAXone INJ 2,000 MG in SODIUM CHLORIDE 0.9% INJ 100 ML IV SCH (11:25)
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
[2017-07-26] MEDS: AMOXICILLIN/CLAVULANATE K 500 MG TAB PO SCH (22:00)
[2017-07-27] VITALS (14 sets, daily range): BP systolic 102–133; BP diastolic 52–69; PULSE 64–98; RESP 12–26; TEMP 98.6–99.8; O2SAT 97–99
[2017-07-27] MEDS: MORPHINE SULFATE 8 MG/ML INJ IV PUSH PRN ×3 (01:21→21:05)
[2017-07-27] MEDS: guanFACINE HCL 1 MG TAB PO SCH ×3 (01:59→17:47)
[2017-07-27] MEDS: oxyCODONE HCL ORAL CONC 5 MG/0.25 ML SYRINGE PO SCH ×6 (03:00→21:53)
[2017-07-27 03:52] LABS: AUTOMATED NEUTROPHIL # 8.2 TH/MM3 (1.8-7.7); BASOPHIL # 0.1 TH/MM3 (0-0.2); BASOPHIL % 0.7 % (0.0-2.0); EOSINOPHIL # 0.3 TH/MM3 (0-0.4); EOSINOPHIL % 2.8 % (0.0-4.0); HEMATOCRIT 28.3 % (39.0-51.0); HEMOGLOBIN 9.9 GM/DL (13.0-17.0); LYMPH % 10.6 % (9.0-44.0); LYMPHOCYTE # 1.1 TH/MM3 (1.0-4.8); MEAN CELL VOLUME 87.9 FL (80.0-100.0); MEAN CORPUSCULAR HEMOGLOBIN 30.8 PG (27.0-34.0); MEAN CORPUSCULAR HGB CONC 35.1 % (32.0-36.0); MEAN PLATELET VOLUME 8.2 FL (7.0-11.0); MONO % 8.9 % (0.0-8.0); MONOCYTE # 0.9 TH/MM3 (0-0.9); PLATELET COUNT 632 TH/MM3 (150-450); RED BLOOD COUNT 3.22 MIL/MM3 (4.50-5.90); RED CELL DISTRIBUTION WIDTH 13.5 % (11.6-17.2); WHITE BLOOD COUNT 10.6 TH/MM3 (4.0-11.0)
[2017-07-27] MEDS: CHLORHEXIDINE GLUCONATE 2 % 1 PACK (2 CLOTHS) TOP SCH (04:00)
[2017-07-27 04:21] LABS: ALBUMIN 2.7 GM/DL (3.4-5.0); AST (GOT) 167 U/L (15-39); BICARBONATE 31.6 MEQ/L (21.0-32.0); BLOOD UREA NITROGEN 18 MG/DL (7-18); CALCIUM 8.8 MG/DL (8.5-10.1); CHLORIDE 108 MEQ/L (98-107); CREATININE 0.57 MG/DL (0.60-1.30); GLOMERULAR FILTRATION RATE 182 ML/MIN (>89); GLUCOSE,RANDOM 124 MG/DL (74-106); SODIUM (NA) 147 MEQ/L (136-145)
[2017-07-27 04:24] LABS: ALKALINE PHOSPHATASE 63 U/L (45-117); ALT (GPT) 217 U/L (9-52); TOTAL BILIRUBIN ADULT 0.5 MG/DL (0.2-1.0); TOTAL PROTEIN 7.1 GM/DL (6.4-8.2)
[2017-07-27] MEDS: ARTIFICIAL TEARS OPTH SOLN 15 ML BTL EACH EYE SCH ×3 (05:23→22:00)
[2017-07-27] MEDS: GLYCOPYRROLATE 0.2 MG/ML VIAL IV PUSH SCH (05:23)
[2017-07-27] MEDS: QUEtiapine FUMARATE 25 MG TAB PO SCH ×3 (05:23→21:06)
[2017-07-27] MEDS: PROPRANOLOL HCL 10 MG TAB PO SCH ×3 (05:24→21:05)
[2017-07-27] MEDS: AMOXICILLIN/CLAVULANATE K 500 MG TAB PO SCH ×3 (05:24→22:00)
[2017-07-27] MEDS: cloNIDine HCL 0.3 MG TAB PO SCH ×3 (05:24→21:05)
[2017-07-27] MEDS: CHLORHEXIDINE 0.12% (ORAL KIT) 15 ML CUP MT SCH ×2 (08:05→20:00)
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
[2017-07-27] MEDS: DOCUSATE SODIUM 100 MG CAP PO SCH ×2 (08:54→21:05)
[2017-07-27] MEDS: LACTULOSE SYRUP 20 GM/30 ML CUP PO SCH (09:00)
[2017-07-27] MEDS: FAMOTIDINE 20 MG TAB PO SCH ×2 (09:00→21:05)
[2017-07-27] MEDS: CIPROFLOXACIN/HYDROCORTISONE OTIC 10 ML BTL RIGHT EAR SCH ×2 (09:00→21:00)
[2017-07-27] MEDS: SODIUM CHLORIDE 0.9% FLUSH 10 ML FLUSH IV FLUSH SCH ×2 (09:00→21:00)
[2017-07-27] MEDS: MAGNESIUM HYDROXIDE SUSP 30 ML CUP PO SCH ×2 (09:00→21:00)
[2017-07-27] MEDS: ENOXAPARIN SODIUM 30 MG/0.3 ML SYRINGE SQ SCH ×2 (10:59→21:53)
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
[2017-07-28] VITALS (13 sets, daily range): BP systolic 101–132; BP diastolic 52–73; PULSE 65–118; RESP 14–24; TEMP 98.4–99.1; O2SAT 97–100
[2017-07-28] MEDS: guanFACINE HCL 1 MG TAB PO SCH ×3 (02:00→18:00)
[2017-07-28] MEDS: oxyCODONE HCL ORAL CONC 5 MG/0.25 ML SYRINGE PO SCH ×6 (03:48→21:49)
[2017-07-28] MEDS: MORPHINE SULFATE 8 MG/ML INJ IV PUSH PRN ×2 (03:48→21:49)
[2017-07-28] MEDS: QUEtiapine FUMARATE 25 MG TAB PO SCH ×3 (03:48→21:48)
[2017-07-28] MEDS: CHLORHEXIDINE GLUCONATE 2 % 1 PACK (2 CLOTHS) TOP SCH (04:00)
[2017-07-28] MEDS: ARTIFICIAL TEARS OPTH SOLN 15 ML BTL EACH EYE SCH ×3 (05:31→21:50)
[2017-07-28] MEDS: cloNIDine HCL 0.3 MG TAB PO SCH ×3 (05:31→21:48)
[2017-07-28] MEDS: AMOXICILLIN/CLAVULANATE K 500 MG TAB PO SCH ×3 (05:31→21:48)
[2017-07-28] MEDS: PROPRANOLOL HCL 10 MG TAB PO SCH ×3 (05:31→21:48)
[2017-07-28] MEDS: MAGNESIUM HYDROXIDE SUSP 30 ML CUP PO SCH ×2 (07:49→21:00)
[2017-07-28] MEDS: SODIUM CHLORIDE 0.9% FLUSH 10 ML FLUSH IV FLUSH SCH ×2 (07:59→21:49)
[2017-07-28] MEDS: LACTULOSE SYRUP 20 GM/30 ML CUP PO SCH (07:59)
[2017-07-28] MEDS: DOCUSATE SODIUM 100 MG CAP PO SCH ×2 (07:59→21:00)
[2017-07-28] MEDS: FAMOTIDINE 20 MG TAB PO SCH ×2 (07:59→21:48)
[2017-07-28] MEDS: CHLORHEXIDINE 0.12% (ORAL KIT) 15 ML CUP MT SCH ×2 (08:00→20:00)
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
[2017-07-28] MEDS: CIPROFLOXACIN/HYDROCORTISONE OTIC 10 ML BTL RIGHT EAR SCH ×2 (09:00→21:00)
[2017-07-28] MEDS ORDERED: oxyCODONE LIQ PO (10:30)
[2017-07-28] MEDS ORDERED: MAGN30S PO (10:30)
[2017-07-28] MEDS ORDERED: PROP10TA6 PO (10:30)
[2017-07-28] MEDS ORDERED: ENOX30P SQ (10:30)
[2017-07-28] MEDS ORDERED: Lactulose Liq PO (10:30)
[2017-07-28] MEDS ORDERED: FAMO20TA2 PO (10:30)
[2017-07-28] MEDS ORDERED: DOCU1CAP39 PO (10:30)
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
[2017-07-28] MEDS: ENOXAPARIN SODIUM 30 MG/0.3 ML SYRINGE SQ SCH ×2 (12:27→21:48)
[2017-07-28] MEDS: LORazepam 2 MG/ML VIAL IV PUSH PRN (14:19)
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
[2017-07-29] VITALS (14 sets, daily range): BP systolic 92–114; BP diastolic 54–69; PULSE 62–95; RESP 15–20; TEMP 98.1–99.2; O2SAT 98–100
[2017-07-29] MEDS: LORazepam 2 MG/ML VIAL IV PUSH PRN (01:27)
[2017-07-29] MEDS: guanFACINE HCL 1 MG TAB PO SCH ×3 (01:27→18:00)
[2017-07-29] MEDS: oxyCODONE HCL ORAL CONC 5 MG/0.25 ML SYRINGE PO SCH ×6 (03:07→22:53)
[2017-07-29] MEDS: CHLORHEXIDINE GLUCONATE 2 % 1 PACK (2 CLOTHS) TOP SCH (03:45)
[2017-07-29] MEDS: AMOXICILLIN/CLAVULANATE K 500 MG TAB PO SCH ×2 (05:27→13:41)
[2017-07-29] MEDS: ARTIFICIAL TEARS OPTH SOLN 15 ML BTL EACH EYE SCH ×3 (05:27→22:00)
[2017-07-29] MEDS: QUEtiapine FUMARATE 25 MG TAB PO SCH ×2 (05:27→13:40)
[2017-07-29] MEDS: cloNIDine HCL 0.3 MG TAB PO SCH (05:27)
[2017-07-29] MEDS: PROPRANOLOL HCL 10 MG TAB PO SCH ×3 (05:27→22:00)
[2017-07-29] MEDS: CHLORHEXIDINE 0.12% (ORAL KIT) 15 ML CUP MT SCH ×2 (08:00→20:00)
[2017-07-29] MEDS: MAGNESIUM HYDROXIDE SUSP 30 ML CUP PO SCH ×2 (09:00→20:59)
[2017-07-29] MEDS: CIPROFLOXACIN/HYDROCORTISONE OTIC 10 ML BTL RIGHT EAR SCH ×2 (09:00→21:00)
[2017-07-29] MEDS: SODIUM CHLORIDE 0.9% FLUSH 10 ML FLUSH IV FLUSH SCH ×2 (09:00→21:00)
[2017-07-29] MEDS: LACTULOSE SYRUP 20 GM/30 ML CUP PO SCH (09:00)
[2017-07-29] MEDS: ENOXAPARIN SODIUM 30 MG/0.3 ML SYRINGE SQ SCH ×2 (09:45→22:53)
[2017-07-29] MEDS: DOCUSATE SODIUM 100 MG CAP PO SCH ×2 (09:45→20:59)
[2017-07-29] MEDS: FAMOTIDINE 20 MG TAB PO SCH ×2 (09:46→20:59)
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
[2017-07-29] MEDS: ACETAMINOPHEN 650 MG/20.3 ML UDC PO PRN (20:59)
[2017-07-29] MEDS: QUEtiapine FUMARATE 100 MG TAB PO SCH (20:59)
[2017-07-30] VITALS (8 sets, daily range): BP systolic 110–126; BP diastolic 61–90; PULSE 78–94; RESP 16–18; TEMP 97–98.1; O2SAT 97–100
[2017-07-30] MEDS: guanFACINE HCL 1 MG TAB PO SCH ×3 (00:46→18:28)
[2017-07-30] MEDS: LORazepam 2 MG/ML VIAL IV PUSH PRN ×2 (02:40→22:43)
[2017-07-30] MEDS: oxyCODONE HCL ORAL CONC 5 MG/0.25 ML SYRINGE PO SCH ×6 (03:03→22:16)
[2017-07-30] MEDS: CHLORHEXIDINE GLUCONATE 2 % 1 PACK (2 CLOTHS) TOP SCH (04:00)
[2017-07-30 04:38] LABS: BASOPHIL # 0.1 TH/MM3 (0-0.2); BASOPHIL % 1.3 % (0.0-2.0); EOSINOPHIL # 0.3 TH/MM3 (0-0.4); EOSINOPHIL % 4.5 % (0.0-4.0); HEMATOCRIT 31.9 % (39.0-51.0); HEMOGLOBIN 11.2 GM/DL (13.0-17.0); LYMPH % 18.1 % (9.0-44.0); LYMPHOCYTE # 1.4 TH/MM3 (1.0-4.8); MEAN CELL VOLUME 86.6 FL (80.0-100.0); MEAN CORPUSCULAR HEMOGLOBIN 30.3 PG (27.0-34.0); MEAN PLATELET VOLUME 8.3 FL (7.0-11.0); MONO % 9.4 % (0.0-8.0); MONOCYTE # 0.7 TH/MM3 (0-0.9); NEUT % 66.7 % (16.0-70.0); PLATELET COUNT 757 TH/MM3 (150-450); RED BLOOD COUNT 3.68 MIL/MM3 (4.50-5.90); RED CELL DISTRIBUTION WIDTH 13.4 % (11.6-17.2); WHITE BLOOD COUNT 7.6 TH/MM3 (4.0-11.0)
[2017-07-30 05:10] LABS: ALBUMIN 3.4 GM/DL (3.4-5.0); ALKALINE PHOSPHATASE 84 U/L (45-117); ALT (GPT) 155 U/L (9-52); AST (GOT) 76 U/L (15-39); BLOOD UREA NITROGEN 19 MG/DL (7-18); CALCIUM 9.7 MG/DL (8.5-10.1); CHLORIDE 99 MEQ/L (98-107); CREATININE 0.66 MG/DL (0.60-1.30); GLOMERULAR FILTRATION RATE 154 ML/MIN (>89); GLUCOSE,RANDOM 94 MG/DL (74-106); SODIUM (NA) 139 MEQ/L (136-145); TOTAL BILIRUBIN ADULT 0.8 MG/DL (0.2-1.0); TOTAL PROTEIN 8.4 GM/DL (6.4-8.2)
[2017-07-30] MEDS: PROPRANOLOL HCL 10 MG TAB PO SCH ×3 (05:42→20:16)
[2017-07-30] MEDS: ARTIFICIAL TEARS OPTH SOLN 15 ML BTL EACH EYE SCH ×3 (05:42→20:17)
--- NOTE | 2017-07-30 06:15 | RADRPT ---
EXAM DATE/TIME: 07/30/2017 05:30 [facility] COMPARISON: CHEST SINGLE AP, July 26, 2017, 5:20. INDICATIONS : Shortness of breath, possible pulmonary disease. MEDICAL HISTORY : None. SURGICAL HISTORY : None. ENCOUNTER: Subsequent ACUITY: 1 week PAIN SCORE: 0/10 LOCATION: Bilateral chest FINDINGS: A single view of the chest demonstrates the lungs to be symmetrically aerated without evidence of mas s, infiltrate or effusion. The cardiomediastinal contours are unremarkable. Osseous structures are intact. Tracheostomy tube stable in position. CONCLUSION: Stable chest. Javier Dunlap MD on July 30, 2017 at 6:13 Board Certified Radiologist. This report was verified electronically.
[2017-07-30] MEDS ORDERED: GUAN1TAB PO (07:58)
[2017-07-30] MEDS ORDERED: QUET1TAB8 PO (07:58)
[2017-07-30] MEDS ORDERED: CIPRHC10A RIGHT EAR (07:58)
[2017-07-30] MEDS: CHLORHEXIDINE 0.12% (ORAL KIT) 15 ML CUP MT SCH ×2 (08:00→20:00)
[2017-07-30] MEDS: QUEtiapine FUMARATE 25 MG TAB PO SCH ×2 (10:07→12:36)
[2017-07-30] MEDS: FAMOTIDINE 20 MG TAB PO SCH ×2 (10:08→20:17)
[2017-07-30] MEDS: SODIUM CHLORIDE 0.9% FLUSH 10 ML FLUSH IV FLUSH SCH ×2 (10:08→20:18)
[2017-07-30] MEDS: MAGNESIUM HYDROXIDE SUSP 30 ML CUP PO SCH ×2 (10:08→20:17)
[2017-07-30] MEDS: LACTULOSE SYRUP 20 GM/30 ML CUP PO SCH (10:08)
[2017-07-30] MEDS: DOCUSATE SODIUM 100 MG CAP PO SCH ×2 (10:08→20:18)
[2017-07-30] MEDS: CIPROFLOXACIN/HYDROCORTISONE OTIC 10 ML BTL RIGHT EAR SCH ×2 (10:10→20:17)
[2017-07-30] MEDS: ENOXAPARIN SODIUM 30 MG/0.3 ML SYRINGE SQ SCH ×2 (10:10→20:18)
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
[2017-07-30] MEDS: QUEtiapine FUMARATE 100 MG TAB PO SCH (20:17)
[2017-07-31] VITALS (7 sets, daily range): BP systolic 117–128; BP diastolic 72–88; PULSE 78–86; RESP 16–18; TEMP 97.1–98.1; O2SAT 96–100
[2017-07-31] MEDS: guanFACINE HCL 1 MG TAB PO SCH ×2 (02:00→09:14)
[2017-07-31] MEDS: oxyCODONE HCL ORAL CONC 5 MG/0.25 ML SYRINGE PO SCH ×3 (02:54→11:51)
[2017-07-31] MEDS: ARTIFICIAL TEARS OPTH SOLN 15 ML BTL EACH EYE SCH ×2 (05:37→14:00)
[2017-07-31] MEDS: PROPRANOLOL HCL 10 MG TAB PO SCH ×2 (05:37→14:21)
[2017-07-31] MEDS: LORazepam 2 MG/ML VIAL IV PUSH PRN (05:38)
--- NOTE | 2017-07-31 07:52 | PD.ORT.PN ---
Subjective Subjective Remarks no new issues Objective Vitals Vital Signs Date Time Temp Pulse Resp B/P (MAP) Pulse Ox O2 Delivery O2 Flow Rate FiO2 07/31/17 04:00 98.1 78 16 117/72 (87) 98 07/31/17 03:51 96 Trach Collar 5.00 28 07/31/17 00:00 97.9 80 16 119/87 (98) 100 07/30/17 22:35 Bi-Pap 5.00 28 07/30/17 20:05 78 07/30/17 20:00 97.2 82 16 121/90 (100) 100 07/30/17 18:29 Trach Collar 07/30/17 16:00 97.5 85 18 118/80 (93) 100 07/30/17 12:00 97.6 94 17 126/84 (98) 97 07/30/17 10:10 100 T-Piece 5.00 28 Humidified 07/30/17 08:00 97.6 92 18 110/70 (83) 100 I/O 07/30/17 07/30/17 07/30/17 07/31/17 07/31/17 07/31/17 07:00 15:00 23:00 07:00 15:00 23:00 Intake Total 216 ml 875 ml 260 ml Output Total 1500 ml 1400 ml 600 ml Balance -1284 ml -525 ml -340 ml Intake Oral 875 ml 0 ml Tube Feeding 216 ml 260 ml Output Urine Total 1500 ml 1400 ml 600 ml # Bowel Movements 1 0 Result Diagram: 07/30/17 0410 07/30/17 0410 Imaging Last 24 hours Impressions Chest X-Ray 07/17/17 0600 Signed Impressions: Service Date/Time: Monday, July 17, 2017 05:08 - CONCLUSION: Right chest tube remains present and no pneumothorax is identified. There is mild atelectasis at the lung bases. Raphael Mendez MD Objective Remarks aaox3. NAD right upper extremity -splint in place good cap refill, grossly nvi left knee- dressing CDI, LLE grossly nvi. good knee ROM. Assessment & Plan Assessment and Plan POD4- ORIF right radius left knee I&D dc splint LUE dc sutures RUE and LLE WBAT RUE, LLE short arm cast RUE ROM L knee as tolerated f/u 2 wks Shlomo Sparks Jr., MD Jul 31, 2017 07:52
[2017-07-31] MEDS: CHLORHEXIDINE 0.12% (ORAL KIT) 15 ML CUP MT SCH (08:00)
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
[2017-07-31] MEDS: CIPROFLOXACIN/HYDROCORTISONE OTIC 10 ML BTL RIGHT EAR SCH (09:13)
[2017-07-31] MEDS: FAMOTIDINE 20 MG TAB PO SCH (09:14)
[2017-07-31] MEDS: MAGNESIUM HYDROXIDE SUSP 30 ML CUP PO SCH (09:14)
[2017-07-31] MEDS: DOCUSATE SODIUM 100 MG CAP PO SCH (09:14)
[2017-07-31] MEDS: LACTULOSE SYRUP 20 GM/30 ML CUP PO SCH (09:14)
[2017-07-31] MEDS: QUEtiapine FUMARATE 25 MG TAB PO SCH (09:25)
[2017-07-31] MEDS: SODIUM CHLORIDE 0.9% FLUSH 10 ML FLUSH IV FLUSH SCH (09:27)
[2017-07-31] MEDS ORDERED: SERO25TA PO (10:54)
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
--- NOTE | 2017-07-31 11:48 | RADRPT ---
EXAM DATE/TIME: 07/31/2017 11:15 [facility] COMPARISON: CHEST SINGLE AP, July 30, 2017, 5:30. INDICATIONS : Evaluate fracture MEDICAL HISTORY : None. SURGICAL HISTORY : ORIF FOREARM ENCOUNTER: Subsequent ACUITY: 2 weeks PAIN SCORE: 0/10 LOCATION: Right Forearm FINDINGS: The examination demonstrates plating of the patient's mid radial fracture. The alignment is excellent . Note is made of a mildly displaced fracture involving the ulnar styloid. CONCLUSION: 1. Excellent alignment of the patient's radial fracture post plating. 2. Ulnar styloid fracture. Jarek Juan MD on July 31, 2017 at 11:45 Board Certified Radiologist. This report was verified electronically.
[2017-07-31] MEDS: ENOXAPARIN SODIUM 30 MG/0.3 ML SYRINGE SQ SCH (11:52)
[2017-07-31] MEDS ORDERED: QUEtiapine FUMARATE 25 MG TAB PO SCH (12:00)
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
== END 2017-07-31 14:27 | DRG 3 ==
LOC: NEPI 14:51 → NEDA 15:58 → EDBD 15:58 → N03B 17:28 → N07A 07-29 17:43
PROVIDERS: ADMIT Surgery; ATTEND Surgery
PROC: 4A103BD Monitoring of Intracranial Pressure, Percutaneous Approach (ICD-10-PCS; 2017-07-14)
PROC: 0BH17EZ Insertion of Endotracheal Airway into Trachea, Via Natural or Artificial Opening (ICD-10-PCS; 2017-07-14)
PROC: 0W9930Z Drainage of Right Pleural Cavity with Drainage Device, Percutaneous Approach (ICD-10-PCS; 2017-07-14)
PROC: 0HD4XZZ Extraction of Neck Skin, External Approach (ICD-10-PCS; 2017-07-14)
PROC: 0HQ4XZZ Repair Neck Skin, External Approach (ICD-10-PCS; 2017-07-14)
PROC: 3E10X8Z Irrigation of Skin and Mucous Membranes using Irrigating Substance (ICD-10-PCS; 2017-07-14)
PROC: 5A1955Z Respiratory Ventilation, Greater than 96 Consecutive Hours (ICD-10-PCS; principal; 2017-07-14 16:02)
PROC: 00H032Z Insertion of Monitoring Device into Brain, Percutaneous Approach (ICD-10-PCS; 2017-07-14 16:02)
PROC: 0PSH04Z Reposition Right Radius with Internal Fixation Device, Open Approach (ICD-10-PCS; 2017-07-16)
PROC: 3E1U38X Irrigation of Joints using Irrigating Substance, Percutaneous Approach, Diagnostic (ICD-10-PCS; 2017-07-16)
PROC: 0HQ1XZZ Repair Face Skin, External Approach (ICD-10-PCS; 2017-07-18)
PROC: 0NSBXZZ Reposition Nasal Bone, External Approach (ICD-10-PCS; 2017-07-18)
PROC: 0B113F4 Bypass Trachea to Cutaneous with Tracheostomy Device, Percutaneous Approach (ICD-10-PCS; 2017-07-24)
PROC: 0B9J8ZZ Drainage of Left Lower Lung Lobe, Via Natural or Artificial Opening Endoscopic (ICD-10-PCS; 2017-07-24)
PROC: 0B9F8ZZ Drainage of Right Lower Lung Lobe, Via Natural or Artificial Opening Endoscopic (ICD-10-PCS; 2017-07-24)
PROC: 0DH63UZ Insertion of Feeding Device into Stomach, Percutaneous Approach (ICD-10-PCS; 2017-07-24)
PROC: 0DJ08ZZ Inspection of Upper Intestinal Tract, Via Natural or Artificial Opening Endoscopic (ICD-10-PCS; 2017-07-24)
DX: S06.6X9A Traumatic subarachnoid hemorrhage with loss of consciousness of unspecified duration, initial encounter (principal); J15.20 Pneumonia due to staphylococcus, unspecified; S27.0XXA Traumatic pneumothorax, initial encounter; J95.851 Ventilator associated pneumonia; F01.51 Vascular dementia, unspecified severity, with behavioral disturbance; S27.321A Contusion of lung, unilateral, initial encounter; E88.09 Other disorders of plasma-protein metabolism, not elsewhere classified; J96.01 Acute respiratory failure with hypoxia; J96.02 Acute respiratory failure with hypercapnia; S52.201A Unspecified fracture of shaft of right ulna, initial encounter for closed fracture; S52.301A Unspecified fracture of shaft of right radius, initial encounter for closed fracture; Z99.11 Dependence on respirator [ventilator] status; F02.81 Dementia in other diseases classified elsewhere, unspecified severity, with behavioral disturbance; S06.1X9A Traumatic cerebral edema with loss of consciousness of unspecified duration, initial encounter; S11.81XA Laceration without foreign body of other specified part of neck, initial encounter; S81.012A Laceration without foreign body, left knee, initial encounter; S06.5X9A Traumatic subdural hemorrhage with loss of consciousness of unspecified duration, initial encounter; S02.611A Fracture of condylar process of right mandible, initial encounter for closed fracture; S01.311A Laceration without foreign body of right ear, initial encounter; R00.0 Tachycardia, unspecified; V29.49XA Motorcycle driver injured in collision with other motor vehicles in traffic accident, initial encounter; Y92.488 Other paved roadways as the place of occurrence of the external cause; Y93.89 Activity, other specified; S02.2XXA Fracture of nasal bones, initial encounter for closed fracture; S06.9X9S Unspecified intracranial injury with loss of consciousness of unspecified duration, sequela; S89.82XA Other specified injuries of left lower leg, initial encounter; F12.90 Cannabis use, unspecified, uncomplicated; S01.81XA Laceration without foreign body of other part of head, initial encounter; S01.21XA Laceration without foreign body of nose, initial encounter; S00.211A Abrasion of right eyelid and periocular area, initial encounter; S06.369A Traumatic hemorrhage of cerebrum, unspecified, with loss of consciousness of unspecified duration, initial encounter; H70.91 Unspecified mastoiditis, right ear; M41.9 Scoliosis, unspecified; D64.9 Anemia, unspecified; Y84.8 Other medical procedures as the cause of abnormal reaction of the patient, or of later complication, without mention of misadventure at the time of the procedure; F41.9 Anxiety disorder, unspecified
CPT/HCPCS: 31500; 36600; 36620; 70450; 70480; 70486; 70551; 71045; 71260; 72125; 72129; 72132; 72141; 72170; 73070; 73090; 73590; 74177; 76000; 76705; 80048; 80053; 80076; 80164; 80202; 81003; 82140; 82150; 82805; 83690; 83735; 83930; 83935; 84100; 84145; 84295; 85007; 85025; 85027; 85610; 85730; 86403; 86850; 86900; 86901; 87040; 87070; 87077; 87086; 87147; 87184; 87185; 87186; 87205; 87641; 90471; 90715; 94002; 94003; 94770; 96374; 96375; 99291; J1265; C1713; G0390; J0171; J0330; J0360; J0461; J0690; J0696; J1100; J1580; J1630; J1650; J1885; J1953; J2060; J2250; J2270; J2370; J2405; J2543; J3010; J3370; J3480; J7030; J7040; J7050; J7060; J7120; L1830; Q9967